=== PATIENT | female | born 1940 | race Caucasian/White ===

== ENCOUNTER 2019-12-14 13:52 | Inpatient (IN) ==
[2019-12-14] MEDS ORDERED: ICU PROTOCOL FOR HYPERGLYCEMIA PRN (17:14)
[2019-12-14] MEDS ORDERED: PROPOFOL BOLUS FROM BAG IV PRN (17:17)
[2019-12-14] MEDS ORDERED: STAT IV Infusion **Titration per Protocol STA ×2 (17:17→20:44)
[2019-12-14] MEDS ORDERED: PROPOFOL IV EMULSION 10 MG/ML 100 ML VIAL IV ONE (17:24)
[2019-12-14] MEDS ORDERED: PATIENT'S HEIGHT AND/OR WEIGHT NEEDED SCH (17:45)
--- NOTE | 2019-12-14 17:56 | Critical Care Consultation ---
Date of Consultation December 14, 2019 Assessment & Plan (1) Pneumonia due to 2019 novel coronavirus: Assessment and Plan: -Acute hypoxemic respiratory failure secondary to Covid pneumonitis -Hypertensive urgency -History of CAD -History of CVA -Hyperglycemia with a history of diabetes mellitus -Acute hyponatremia Neurologic: We will start fentanyl and propofol for sedation. Patient appears to be mentating and following commands. She has a history of CVA. Will obtain records from the outside hospital. No head imaging required at this time. Pulmonary: Ventilator: 28/400/100/15 Head of the bed elevated to 30 degrees Obtain an ABG in 1 hour. If she continues to have refractory hypoxemia, we will have to consider proning and starting paralytic therapy. Will obtain chest x- ray. It appears that she may have had a CT chest at the outside hospital. Will obtain imaging from the outside facility if available. She may need an echocardiogram with a bubble study to rule out shunt physiology. Cardiovascular: She is currently having hypertensive urgency. This should be better controlled with the addition of fentanyl and propofol. We will obtain an echo as noted above if refractory hypoxemia is present. She appears fairly euvolemic at this time. Obtain EKG and trend troponins. Gastrointestinal: Bowel regimen Stress ulcer prophylaxis: We will start famotidine 20 mg twice daily. Renal: We will obtain BMP and treat accordingly. Monitor sodium. Obtain urine sodium and serum osmolality. Infectious disease: Per the outside facility, she had a UA that was consistent with a E. coli. She apparently has penicillin allergy. She was on aztreonam. We will continue treating him for the time being. Obtain MRSA screen and procalcitonin. Hematologic: CBC pending Endocrine: History of diabetes and currently hyperglycemic. We will likely start insulin drip. F/E/N: We will place an NG tube. If unable to extubate in the next 24 hours, will start her on tube feeds. Lines and tubes: [address] and a Ritter catheter VTE prophylaxis: SCDs and heparin 3 times daily CODE STATUS: Full code at present Family at bedside: Not available due to the COVID-19 pandemic Disposition: Patient is critically ill I have personally spent 63 minutes of critical care time in the direct management of this patient. This is a life/limb threatening event. This includes time spent evaluating patient, direct bedside care, chart review, placing orders, interpretation of diagnostic studies, discussion with consultants, patient, and family members, as well as other required patient management activities. This time is exclusive of all separately billable procedures, and teaching time and separate from and in addition to any other critical care service time. Thank you for allowing us to participate in the care of this patient. (2) Acute hypoxemic respiratory failure: (3) Coronary artery disease: (4) Endotracheally intubated: (5) Hypertensive urgency: History of Present Illness Reason for Consultation: Viral pneumonia secondary to Covid Requesting Physician: Hospitalist service Attending Physician: Beto Kay MD History of Present Illness 79-year-old female with a past medical history of coronary artery dise ase, previous CVA with right-sided lower extremity deficits, diabetes mellitus type 2, hyponatremia who presented to [facility] in [place] roughly 4 to 5 days ago. I received a phone call from the hospitalist to [facility] who indicated that the patient was starting to go into worsening respiratory failure requiring 15 L of oxygen via Ventimask and 55% FiO2. He indicated to me that her ABG was 7.5/24/55 on those settings. Due to worsening hypoxemic respiratory failure, they elected to emergently intubate the patient and requested transfer to [facility] for further management. She apparently had imaging at the outside facility that demonstrated groundglass opacities consistent with possible Covid pneumonitis. She was started on remdesivir per the hospitalist service. She received Lasix. Her last sodium was 125. She is also being treated for an E. coli urinary tract infection infection with aztreonam. Unable to obtain a history from the patient she is currently intubated. No family is available at bedside. Unfortunately the charting that we received thus far from the outside facility is very sparse with no history or progress notes available as of yet. She does appear to be mentating well and is following simple commands. Patient History Medical History (Updated 12/14/19 @ 18:01 by Peewee Gracia MD) Acute hypoxemic respiratory failure Coronary artery disease Endotracheally intubated Hypertensive urgency Pneumonia due to 2019 novel coronavirus Review of Systems Review of Systems: Unobtainable due to endotracheal tube Physical Exam Constitutional: Patient is currently intubated. She appears to be in mild distress. Eyes: PERRL, conjunctivae normal, anicteric sclerae ENMT: external ear and nose normal, oropharynx normal Neck: + thick neck Respiratory: Coarse breath sounds bilaterally with some mild expiratory wheezing Cardiovascular: RRR, no murmur, no edema Gastrointestinal (Abdomen): normal bowel sounds, soft, nontender, no hepatosplenomegaly Musculoskeletal: no cyanosis or clubbing, extremities motor strength 5/5 Skin: no rashes, warm and dry Neurologic: Weakness noted in the right lower extremity. She is gripping my hands bilaterally with her hands. Able to move upper extremities without any issues. Moving her head. Following commands. Psychiatric: Unable to assess due to her intubation status. She does appear mildly anxious. Results & Data Results & Data ([facility]) Vital Signs (Past 12 Hours) Vital Signs Pulse Resp Pulse Ox 12/14/19 17:34 79 35 H 94 Vital signs reviewed Coding Level of Care Code Critical Care 1st 30-74 mins Diagnoses Pneumonia due to 2019 novel coronavirus U07.1; J12.89 Acute hypoxemic respiratory failure J96.01 Coronary artery disease I25.10 Endotracheally intubated Z97.8 Hypertensive urgency I16.0 Time Spent (min) 63
[2019-12-14] MEDS ORDERED: GLUCOSE 40% GEL 15 GM TUBE PO PRN (18:08)
[2019-12-14] MEDS ORDERED: DEXTROSE 50% 50 ML SYRINGE IV PRN (18:08)
[2019-12-14] MEDS ORDERED: GLUCOSE 10 TABS/TUBE PO PRN (18:08)
[2019-12-14] MEDS ORDERED: CARBOHYDRATES FOR HYPOGLYCEMIA PO PRN (18:08)
[2019-12-14] MEDS ORDERED: PHARMACY GLYCEMIC MGMT CONSULT STA (18:08)
[2019-12-14] MEDS ORDERED: GLUCAGON FOR INJ 1 MG VIAL SQ PRN (18:08)
[2019-12-14] MEDS ORDERED: PHARMACY GLYCEMIC MGMT CONSULT PRN (18:18)
--- NOTE | 2019-12-14 18:34 | History & Physical Report ---
Date of Service December 14, 2019 Assessment & Plan (1) Acute hypoxemic respiratory failure: Secondary to Covid pneumonia. Patient be continued on remdesivir dexamethasone and she will be given convalescent plasma. She is currently ventilated with pulmonary oversight and sedated with propofol. Hopes to proceed to rapid weaning and eventually supporting hypoxic respiratory failure with high flow oxygen (2) Coronary artery disease: Reportedly history of coronary artery disease with stenting. Patient typically was on dual antiplatelets also because of history of cerebrovascular disease. She also typically took isosorbide mononitrate and metoprolol. We will utilize intravenous metoprolol for blood pressure control and we can institute nitrates if needed. As the patient is intubated we will have an OG tube placed and institute aspirin and Plavix therapy via OG tube. (3) Diabetes: Patient's blood glucose is elevated on presentation we will attempt to use Lantus at 20 twice daily which is about 0.5/kg and insulin sliding scale with diabetic pharmacy oversight attempting to minimize in insulin drip usage to minimize nursing exposure to Covid (4) E. coli UTI: This is as per [facility] chart we will continue aztreonam completing a 7- day course at this time (5) DVT prophylaxis: Lovenox abuse for DVT prevention Admission and Anticipated Discharge Date Admission Date: December 14, 2019 History of Present Illness Primary Care Provider: Sherice Linton MD 79-year-old female transferred from [facility] with acute respiratory failure secondary to Covid pneumonia with intubation prior to transport Reportedly the patient was admitted to [facility] on [address] scan findings consistent with bilateral groundglass opacities right greater than left. At the time that they were suspicious that this could be a Covid infection and an testing was sent but did not return until the at which time an infectious disease consultation was undertaken and remdesivir was initiated as well as Decadron therapy. However the patient continued to have progressive respiratory requirements and call to our intensive care team was made patient was accepted in transfer however the team at [facility] felt more comfortable with the patient being intubated prior to transfer. Patient arrives intubated she is sedated with propofol will be continued on dexamethasone remdesivir will be given convalescent plasma prior. I did obtain phone consent from Doreen Cisneros her daughter. GC bladder patient also did initially received levofloxacin on presentation and then aztreonam for what was felt to be an E. coli UTI as she does have a history of penicillin allergy. Patient does arrive here with an elevated blood glucose likely from the Decadron and her history of type 2 diabetes we will attempt to use basal bolus insulin therapy at this time to avoid insulin drip to minimize nursing exposure to the patient with Covid infection. Reportedly per [facility] notes the patient did receive a dental extraction a few days prior to her initial presentation to [facility] details of this are unknown or if the dentist is aware of the patient's Covid status Past Med/Surg History Medical History (Updated 12/14/19 @ 18:33 by Beto Kay MD) Acute hypoxemic respiratory failure Coronary artery disease Endotracheally intubated Hypertensive urgency Pneumonia due to 2019 novel coronavirus Review of Systems Review of Systems: Unobtainable due to endotracheal tube Physical Exam Physical Exam: The patient appeared with good perfusion she is resting comfortably on propofol she is endotracheally intubated Vital signs as documented. Head exam is normocephalic atraumatic no scleral icterus Neck is without JVD, trachea is midline Lungs are coarse bilaterally Cardiac exam, Rhythm is regular.. No murmurs, rubs or gallops. Abdominal exam reveals normal bowel sounds, no masses Extremities are nonedematous and both pedal pulses are present Neurologic exam sedated on the ventilator Skin is without bruises or rashes Results & Data Results & Data ([facility]) Vital Signs (Past 12 Hours) Vital Signs Pulse Resp Pulse Ox 12/14/19 17:34 79 35 H 94 PG Care Time/CCT Total # of Minutes Spent Total Time Spent with Patient: Total time spent is greater than 50% in coordination of care (as documented) at patient's floor/unit and/or counseling patient: Coding Level of Care Code 27295 Initial Inpt Care Lvl 3 Diagnoses Acute hypoxemic respiratory failure J96.01 Coronary artery disease I25.10 Diabetes E11.9 E. coli UTI N39.0; B96.20 DVT prophylaxis Z29.9
[2019-12-14] MEDS ORDERED: METOPROLOL TARTRATE 1 MG/ML VIAL IV PRN (18:38)
[2019-12-14] MEDS: propofoL 1,000 MG/100 ML VIAL IV SCH (18:52)
[2019-12-14 18:59] LABS: Basophils # (auto) 0.01 K/uL (0-0.2); Basophils % (auto) 0.1 %; Hematocrit (blood only) 30.3 % (37-47); Hemoglobin 10.5 g/dL (12.0-16.0); Immature Granulocytes # (auto) 0.05 K/uL (0.00-0.02); Immature Granulocytes % (auto) 0.5 %; Lymphocytes # (auto) 0.51 K/uL (1.2-3.4); Lymphocytes % (auto) 4.8 %; Mean Corpuscular Hemoglobin 28.7 pg (25-34); Mean Corpuscular Hgb Conc 34.7 g/dL (32-36); Mean Corpuscular Volume 82.8 fL (80-100); Mean Platelet Volume 10.4 fL (7.4-10.4); Monocytes # (auto) 0.32 K/uL (0.11-0.59); Neutrophils # (auto) 9.76 K/uL (1.4-6.5); Neutrophils % (auto) 91.6 %; Platelet Count 269 K/uL (130-400); RDW Coefficient of Variation 12.9 % (11.5-14.5); RDW Standard Deviation 39.1 fL (36.4-46.3); Red Blood Count 3.66 M/uL (4.2-5.4); White Blood Count 10.65 K/uL (4.8-10.8)
[2019-12-14] MEDS: fentaNYL DRIP 1,250 MCG/250 ML BAG IV SCH (19:09)
[2019-12-14 19:21] LABS: D Dimer 1600 ug/L FEU (0-500)
[2019-12-14 19:37] LABS: Albumin Globulin Ratio 0.5 (0.9-2); Albumin Level 2.6 gm/dl (3.4-5.0); BUN Creatinine Ratio 18.9 (10-20); Bilirubin,Total 0.4 mg/dl (0.2-1); C Reactive Protein 17.3 mg/dl (0-0.29); Calcium 9.1 mg/dl (8.5-10.1); Creatinine Clr Calc Pharmacy 30.9 ml/min; Est GFR (African American) 38.4; Est GFR (Non-African American) 33.1; Globulin 5.1 gm/dl (2.5-4.0); Magnesium 1.7 mg/dl (1.8-2.4); Phosphorus 4.3 mg/dl (2.5-4.9); Potassium 4.4 mmol/L (3.5-5.1); Total Protein 7.7 gm/dl (6.4-8.2); Troponin I 0.041 ng/ml (0-0.045)
[2019-12-14 19:57] LABS: Beta-Hydroxybutyrate 2.15 mg/dl (0.2-2.81)
[2019-12-14] MEDS ORDERED: INSULIN GLARGINE SOLOSTAR 100 UNITS/ML 3 ML PEN SC SCH (20:00)
--- NOTE | 2019-12-14 20:45 | XRay Report ---
KUB HISTORY: ogt placement COMPARISON: None. FINDINGS: Nasogastric tube terminates in the body of the stomach. Mild elevation the right hemidiaphr agm is noted. A few mildly dilated gas-filled loops of large and small bowel within the abdomen. This may represent an ileus. No renal calculi. No ureteral calculi. No pneumoperitoneum or pneumatosis. IMPRESSION: Nasogastric tube terminates in the stomach. ACT 112: Negative or not required by law. Electronically signed by: Reji Jay M.D. 12/14/2019 8:44 PM
[2019-12-14] MEDS: AZTREONAM 1,000 MG in DEXTROSE 5% 100 ML IV SCH (20:49)
[2019-12-14] MEDS ORDERED: INSULIN ASPART 100 UNITS/ML 3 ML PEN SC SCH (21:00)
[2019-12-14] MEDS ORDERED: HEPARIN SOD 5,000 UNIT/0.5 ML VIAL SQ SCH (22:00)
--- NOTE | 2019-12-14 22:23 | Procedure Note ---
Procedure Note Date of Service Procedure: Internal Jugular Central Line Placement Attending: Dr. Gracia APC: Juancarlos Browning PA-C Indication: Central Drug Administration, Poor Venous Access, Multiple Lab Draws Necessary, etc. Anesthesia: Lidocaine 1% Emergent consent implied in the setting of worsening clinical status requiring vasopressor support and the patient with poor peripheral access. A time-out was completed verifying correct patient, procedure, site, positioning, and implants(s) or special equipment if applicable. Patients RIGHT Neck was cleansed and draped in the typical sterile fashion using Chloraprep. The Internal Jugular Vein and Carotid Artery were identified using ultrasound. The superficial tissue was anesthetized using 3.0 mL of 1% lidocaine without epinephrine under direct visualization with the ultrasound. After adequate anesthetization was achieved, the Internal Jugular vein was cannulated under direct ultrasound guidance using an introducer needle on a syringe. Good venous blood return was maintained prior to removal of syringe from introducer needle. Using Seldinger Technique, a guide wire was advanced through the introducer needle without resistance. The introducer needle was removed and ultrasound images were obtained of the guide wire within the Internal Jugular Vein and saved to the patients medical record. A small incision was made in penetrating fashion at the guide wire insertion site utilizing an 11 blade scalpel. The dilator was advanced to the vessel without resistance. The dilator was exchanged for the triple lumen catheter which was advanced into the vessel without resistance. The guide wire was removed intact from the catheter without issue. Claves were placed on each catheter tip with confirmation of good blood flow from each lumen. Each port was easily flushed with sterile saline. The catheter was placed at 15 cm and sut[address] in place. BioPatch was applied to the catheter and a sterile Tegaderm dressing was applied over the catheter with careful attention to sterility. Patient tolerated procedure well. No immediate complications were met. Post procedure x-ray was completed, placement was appropriate and no pneumothorax was noted. Images unable to be saved secondary to machine malfunction. Procedural Ultrasound Guidance: Procedure Date: 12/14/2019 Indication: Pressors, Poor Access, Multiple medications Attending: Dr. Gracia APC: Juancarlos Browning PA-C Artery AND Vein visualized: YES Compressible Vein: YES Guidewire or Short Catheter seen in vein prior to dilation: YES Line confirmed in Vein with ultrasound: YES Images unable to be obtained secondary to equiment malfunction. Coding CPT Codes Tubes, Drains, and Vasc Access - Tubes, Drains, and Vasc Access: [id number] Insertion Of Non-tunneled Catheter Age 5 Yrs> ([id number]) Tubes, Drains, and Vasc Access - Tubes, Drains, and Vasc Access: [id number] Ultrasound Guidance For Vascular ([id number]) [facility] [place] Procedure Codes (Charges) Tubes, Drains, and Vasc Access Procedure 1: Tubes, Drains, and Vasc Access: [id number] Insertion Of Non-tunneled Catheter Age 5 Yrs> Procedure 2: Tubes, Drains, and Vasc Access: [id number] Ultrasound Guidance For Vascular
[2019-12-14] MEDS: METOPROLOL TARTRATE 25 MG TAB PO SCH (22:42)
[2019-12-14] MEDS ORDERED: INSULIN HUMAN REGULAR BOLUS IV ONE (22:45)
[2019-12-14] MEDS: NOREPINEPHRINE BIT INJ 8 MG in DEXTROSE 5% 500 ML IV SCH (22:49)
[2019-12-14 23:29] LABS: BUN Creatinine Ratio 22.6 (10-20); Calcium 8.6 mg/dl (8.5-10.1); Creatinine Clr Calc Pharmacy 29.9 ml/min; Est GFR (African American) 36.9; Est GFR (Non-African American) 31.8; Magnesium 1.7 mg/dl (1.8-2.4); Phosphorus 3.8 mg/dl (2.5-4.9); Potassium 4.3 mmol/L (3.5-5.1)
[2019-12-14 23:52] LABS: Beta-Hydroxybutyrate 2.54 mg/dl (0.2-2.81)
[2019-12-15 00:02] LABS: Appearance Urine Clear (Clear); Bacteria Urine Automated Negative (Negative); Bilirubin Urine Negative (Negative); Blood Urine Trace (Negative); Color Urine Yellow; Epithelial Cell Urine Auto >30 /lpf (0-5); Glucose Urine UA 2+ (Negative); Ketones Urine Negative (Negative); Leukocyte Esterase Urine Trace (Negative); Nitrite Urine Negative (Negative); Protein Urine 1+ (Negative); RBC Urine Automated 0-4 /hpf (0-4); Specific Gravity Urine 1.014 (1.000-1.030); Urobilinogen Urine Negative (Negative)
[2019-12-15] MEDS: INSULIN REGULAR 250 UNITS in SODIUM CHLORIDE 0.9% 247.5 ML IV SCH (00:37)
[2019-12-15] MEDS: propofoL 1,000 MG/100 ML VIAL IV SCH ×2 (02:12→11:29)
[2019-12-15 03:12] LABS: BUN Creatinine Ratio 25.6 (10-20); Creatinine Clr Calc Pharmacy 31.8 ml/min; Est GFR (African American) 39.7; Est GFR (Non-African American) 34.3; Magnesium 1.8 mg/dl (1.8-2.4); Phosphorus 3.9 mg/dl (2.5-4.9); Potassium 3.7 mmol/L (3.5-5.1)
[2019-12-15 03:14] LABS: Albumin Level 2.4 gm/dl (3.4-5.0); Bilirubin Direct 0.2 mg/dl (0-0.2); Bilirubin,Total 0.5 mg/dl (0.2-1); Total Protein 7.4 gm/dl (6.4-8.2)
[2019-12-15 03:23] LABS: Beta-Hydroxybutyrate 5.74 mg/dl (0.2-2.81)
[2019-12-15] MEDS: AZTREONAM 1,000 MG in DEXTROSE 5% 100 ML IV SCH ×3 (04:26→20:00)
[2019-12-15 07:14] LABS: Basophils # (auto) 0.01 K/uL (0-0.2); Basophils % (auto) 0.1 %; Hematocrit (blood only) 31.9 % (37-47); Hemoglobin 11.4 g/dL (12.0-16.0); Immature Granulocytes # (auto) 0.06 K/uL (0.00-0.02); Immature Granulocytes % (auto) 0.6 %; Lymphocytes # (auto) 0.81 K/uL (1.2-3.4); Lymphocytes % (auto) 8.4 %; Mean Corpuscular Hemoglobin 28.6 pg (25-34); Mean Corpuscular Hgb Conc 35.7 g/dL (32-36); Mean Corpuscular Volume 79.9 fL (80-100); Monocytes # (auto) 0.66 K/uL (0.11-0.59); Monocytes % (auto) 6.9 %; Neutrophils # (auto) 8.08 K/uL (1.4-6.5); Platelet Count 300 K/uL (130-400); RDW Coefficient of Variation 12.6 % (11.5-14.5); Red Blood Count 3.99 M/uL (4.2-5.4); White Blood Count 9.62 K/uL (4.8-10.8)
--- NOTE | 2019-12-15 07:37 | XRay Report ---
XR chest 1V portable HISTORY: Status post right jugular central venous catheter placement. COMPARISON: None. FINDINGS: Endotracheal tube terminates 3 cm from the kiran. Nasogastric tube terminates at the body of the stomach. There is a right jugular central venous catheter with the tip terminating in the expe cted location of the proximal SVC. Diffuse interstitial thickening with perihilar airspace opacities, right greater than left. Trace left pleural effusion. No pneumothorax. IMPRESSION: 1. The right jugular central venous catheter tip terminates in the expected location of the proximal SVC. 2. The remaining lines and tubes are in satisfactory position. 3. Perihilar airspace opacities, right greater than left and a trace left pleural effusion. This coul d be due to a pneumonia or pulmonary edema. ACT 112: Negative or not required by law. Electronically signed by: Reji Jay M.D. 12/15/2019 7:36 AM
[2019-12-15 07:41] LABS: BUN Creatinine Ratio 27.3 (10-20); Calcium 9.4 mg/dl (8.5-10.1); Creatinine Clr Calc Pharmacy 34.4 ml/min; Est GFR (African American) 43.7; Est GFR (Non-African American) 37.7; Phosphorus 3.7 mg/dl (2.5-4.9); Potassium 3.6 mmol/L (3.5-5.1)
[2019-12-15 07:53] LABS: Estimated Average Glucose 194 mg/dl; Hemoglobin A1C 8.4 % (4.5-5.6)
[2019-12-15] MEDS: DEXAMETHASONE SOD PHOSPHATE 6 MG in SYRINGE 0 ML IV SCH (08:08)
[2019-12-15] MEDS: ENOXAPARIN INJ 40 MG/0.4 ML SYR SQ SCH (08:08)
[2019-12-15] MEDS: INSULIN ASPART 100 UNITS/ML 3 ML PEN SC SCH ×4 (08:39→20:50)
[2019-12-15] MEDS: METOPROLOL TARTRATE 25 MG TAB PO SCH (08:40)
[2019-12-15] MEDS ORDERED: REMDESIVIR 200 mg: Day 1 IV ONE (09:00)
--- NOTE | 2019-12-15 09:23 | Critical Care Progress Note ---
Date of Service December 15, 2019 Assessment & Plan (1) Pneumonia due to 2019 novel coronavirus: Patient was discussed on multidisciplinary rounds. Assessment and Plan: -Acute hypoxemic respiratory failure secondary to COVID pneumonitis -Hypertensive urgency -Sedation related hypotension -History of CAD -History of CVA -Hyperglycemia with a history of diabetes mellitus -Acute hyponatremia -Complicated urinary tract infection Neurologic: Continue propofol and fentanyl for sedation. She has a history of CVA. Continue aspirin. Pulmonary: Ventilator: She has evidence of respiratory alkalosis. Wean down respiratory rate from 25-18. We were able to go down to an FiO2 of 40% and a PEEP of 5. Oxygenation appears adequate. Head of the bed elevated to 30 degrees Continue broad-spectrum antibiotics for pneumonia. Continue therapies for Covid pneumonitis Cardiovascular: Her blood pressure dropped overnight due to propofol and fentanyl. She also has some mild bradycardia. We are weaning down the propofol. Obtain echocardiogram. Troponins have been negative thus far. Gastrointestinal: Bowel regimen Stress ulcer prophylaxis: Continue famotidine twice daily. We will start tube feeds today. Renal: She continues to have hyponatremia. Possible SIADH related to Covid pneumonia. Urine sodium is 74. Infectious disease: Per the outside facility, she had a UA that was consistent with a E. coli. She apparently has penicillin allergy. She was on aztreonam. Continue treatment for 7 days. MRSA screen was negative. Procalcitonin negative. Repeat procalcitonin is negative. Blood cultures pending. Continue remdesivir, Decadron. She received convalescent plasma last night. Hematologic: Patient has evidence of mild anemia. Lymphopenia present on peripheral smear. Ferritin was not substantially elevated. D-dimer is elevated, but nonspecific. Endocrine: Continue insulin drip. Management per ICU pharmacist. F/E/N: We will start tube feeds. Lines and tubes: Peripheral IVs and central line in place. Ritter in place. VTE prophylaxis: Continue Lovenox 40 mg daily. CODE STATUS: Full code at present Family at bedside: Not available due to the COVID-19 pandemic Disposition: Patient is critically ill I have personally spent 53 minutes of critical care time in the direct management of this patient. This is a life/limb threatening event. This includes time spent evaluating patient, direct bedside care, chart review, placing orders, interpretation of diagnostic studies, discussion with consultants, patient, and family members, as well as other required patient management activities. This time is exclusive of all separately billable procedures, and teaching time and separate from and in addition to any other critical care service time. Thank you for allowing us to participate in the care of this patient. (2) Acute hypoxemic respiratory failure: (3) Coronary artery disease: (4) Endotracheally intubated: (5) Hypertensive urgency: (6) Complicated UTI (urinary tract infection): Admission and Anticipated Discharge Date Admission Date: December 14, 2019 Subjective Patient had some transient episodes of hypotension overnight. She is currently on low-dose Levophed currently. We are weaning down her propofol from 25 mcg to 10 mcg. She is currently on 50 mcg of fentanyl. She is not following any commands due to sedation. Right internal jugular line was placed overnight due to hypotension. Arterial line was attempted but unable to be placed. Review of Systems Review of Systems: Unobtainable due to endotracheal tube and Unobtainable due to reduced consciousness Physical Exam Constitutional: Patient is currently intubated and sedated. Eyes: PERRL, conjunctivae normal, anicteric sclerae ENMT: external ear and nose normal, oropharynx normal Neck: + thick neck Respiratory: Coarse breath sounds bilaterally on the ventilator Cardiovascular: RRR, no murmur, no edema Gastrointestinal (Abdomen): normal bowel sounds, soft, nontender, no hepatosplenomegaly Musculoskeletal: no cyanosis or clubbing, extremities motor strength 5/5 Skin: no rashes, warm and dry Neurologic: No focal deficits noted. Exam limited due to sedation. Psychiatric: Unable to assess due to her intubation status. Results & Data Results & Data ([facility]) Vital Signs (Past 12 Hours) Vital Signs Temp Pulse Pulse Resp BP BP Pulse Ox 12/15/19 08:10 46 L 26 H 96 12/15/19 04:30 46 L 96 12/15/19 04:28 46 L 166/65 H 96 12/15/19 04:18 46 L 164/63 H 96 12/15/19 04:08 47 L 164/64 H 96 12/15/19 04:00 47 L 96 12/15/19 03:58 48 L 115/56 L 95 12/15/19 03:52 97.0 F L 48 L 153/56 H 95 12/15/19 03:48 48 L 153/56 H 94 12/15/19 03:38 48 L 146/59 H 94 12/15/19 03:32 48 L 47 L 29 H 145/57 H 145/57 H 93 12/15/19 03:30 48 L 93 12/15/19 03:28 48 L 143/56 H 93 12/15/19 03:18 52 L 153/64 H 94 12/15/19 03:08 48 L 148/51 H 94 12/15/19 03:00 50 L 94 12/15/19 02:58 49 L 154/65 H 94 12/15/19 02:56 49 L 28 H 98 12/15/19 02:48 49 L 145/56 H 98 12/15/19 02:38 49 L 147/58 H 98 12/15/19 02:30 47 L 97 12/15/19 02:28 49 L 142/55 H 97 12/15/19 02:18 56 L 152/61 H 95 12/15/19 02:08 49 L 155/63 H 98 12/15/19 02:00 47 L 98 12/15/19 01:58 47 L 147/61 H 98 12/15/19 01:48 49 L 142/63 H 98 12/15/19 01:38 48 L 143/60 H 98 12/15/19 01:30 48 L 97 12/15/19 01:28 47 L 139/63 98 12/15/19 01:18 50 L 137/59 L 97 12/15/19 01:09 49 L 97 12/15/19 01:08 49 L 136/63 97 12/15/19 01:00 50 L 97 12/15/19 00:58 49 L 144/61 H 97 12/15/19 00:48 49 L 138/62 98 12/15/19 00:38 48 L 147/58 H 98 12/15/19 00:30 49 L 98 12/15/19 00:28 49 L 168/61 H 98 12/15/19 00:18 48 L 168/65 H 98 12/15/19 00:08 49 L 171/60 H 98 12/15/19 00:00 48 L 97 12/14/19 23:58 49 L 171/60 H 97 12/14/19 23:48 50 L 166/62 H 97 12/14/19 23:45 48 L 28 H 100 12/14/19 23:43 49 L 49 L 29 H 176/71 H 176/71 H 97 12/14/19 23:39 51 L 146/51 H 97 12/14/19 23:30 49 L 100 12/14/19 23:17 50 L 112/54 L 100 12/14/19 23:07 50 L 110/53 L 100 12/14/19 23:00 51 L 100 12/14/19 22:57 51 L 108/52 L 99 12/14/19 22:50 52 L 99 12/14/19 22:47 52 L 106/56 L 99 12/14/19 22:40 52 L 99 12/14/19 22:37 52 L 111/54 L 99 12/14/19 22:30 53 L 99 12/14/19 22:27 53 L 113/59 L 98 12/14/19 22:20 53 L 97 12/14/19 22:17 54 L 121/57 L 96 12/14/19 22:10 55 L 97 12/14/19 22:07 57 L 187/66 H 97 12/14/19 22:00 98.4 F 60 99 12/14/19 21:57 56 L 185/75 H 96 12/14/19 21:50 55 L 94 12/14/19 21:40 52 L 96 12/14/19 21:38 54 L 168/58 H 96 12/14/19 21:30 52 L 95 12/14/19 21:20 52 L 95 I reviewed vital signs, labs and imaging Coding Level of Care Code Critical Care 1st 30-74 mins Diagnoses Pneumonia due to 2019 novel coronavirus U07.1; J12.89 Acute hypoxemic respiratory failure J96.01 Coronary artery disease I25.10 Endotracheally intubated Z97.8 Hypertensive urgency I16.0 Complicated UTI (urinary tract infection) N39.0 Time Spent (min) 53
[2019-12-15 09:43] LABS: iSTAT Arterial Blood Gas pCO2 29 mmHg (35-46); iSTAT Arterial Blood Gas pH 7.43 (7.35-7.45); iSTAT Arterial Blood Gas pO2 121 mmHg (80-95); iSTAT Carbon Dioxide 20 mmol/L (24-31)
[2019-12-15 09:44] LABS: iSTAT Arterial Blood Gas HCO3 19 meg/L (19-24)
[2019-12-15 09:44] LABS: iSTAT Sodium 123 mmol/L (135-144)
[2019-12-15 09:45] LABS: iSTAT Art Bld Gas pCO2 Correct 26 mmHg (35-46); iSTAT Art Bld Gas pH Corrected 7.504 (7.35-7.45); iSTAT Arterial Blood Gas HCO3 20 meg/L (19-24); iSTAT Arterial Blood Gas pCO2 26 mmHg (35-46); iSTAT Arterial Blood Gas pO2 112 mmHg (80-95); iSTAT Arterial Blood Gas pO2 C 112; iSTAT Carbon Dioxide 21 mmol/L (24-31); iSTAT Hematocrit 31 % (37-47); iSTAT Hemoglobin 10.5 g/dl (12.0-16.0); iSTAT Potassium 3.5 mmol/L (3.3-5.0)
[2019-12-15 09:46] LABS: iSTAT Allen Test Acceptable; iSTAT FiO2 60 %; iSTAT Sample Type Arterial; iSTAT Site L Brachial
[2019-12-15 09:47] LABS: iSTAT SpO2 100
[2019-12-15] MEDS: ASPIRIN 81 MG CHEW NG SCH (10:22)
[2019-12-15] MEDS: CLOPIDOGREL BISULFATE 75 MG TAB PEG SCH (10:22)
[2019-12-15] MEDS: NSS 30mL Flush, Days 1-5 IV SCH (10:23)
[2019-12-15 10:43] LABS: BUN Creatinine Ratio 29.4 (10-20); Creatinine Clr Calc Pharmacy 37.5 ml/min; Est GFR (African American) 48.6; Est GFR (Non-African American) 41.9; Magnesium 2.1 mg/dl (1.8-2.4); Phosphorus 3.9 mg/dl (2.5-4.9); Potassium 3.5 mmol/L (3.5-5.1)
[2019-12-15] MEDS: INSULIN GLARGINE SOLOSTAR 100 UNITS/ML 3 ML PEN SC SCH ×2 (11:00→21:24)
[2019-12-15] MEDS: FAMOTIDINE 20 MG in SYRINGE 3 ML IV SCH (11:28)
[2019-12-15] MEDS ORDERED: PEPTAMEN 1.5 CAL 1,000 ML BAG NG SCH (12:30)
--- NOTE | 2019-12-15 12:43 | XCELERA ---
[id number]
--- NOTE | 2019-12-15 13:20 | Hospitalist Progress Note ---
Date of Service December 15, 2019 Assessment & Plan (1) Pneumonia due to 2019 novel coronavirus: Admitted to [facility] in [place] on 12/11/2019 per records. Acute hypoxic respiratory failure / respiratory status worsened while there, and she was intubated on 12/14/19 prior to Tx to [facility] ICU. Remains mechanically ventilated. Spoke with Dr Gracia - plan is for weaning of sedation & pressors today. If she meets weaning parameters by tomorrow attempts at extubation will occur. She is at least day #2 of IV decadron here - uncertain if she received steroids at outside hospital; will inquire with [facility]. s/p convalescent plasma early this am, 12/15/19. Now that renal function has improved with CrCL >30 will start 5-day course of IV remdesivir. Discussed this with pharmacy and ICU attending. (2) Acute hypoxemic respiratory failure: 2nd to COVID-19 pneumonia. See above. Day #2 of ventilator days. (3) Severe sepsis: 2nd to COVID-19 pneumonia and e.coli UTI. Cont supportive care for COVID-19. Cont aztreonam for e.coli UTI. Attempt to obtain urine culture from [facility]. Suspect hypothermia is due to the above infectious sources. (4) Coronary artery disease: Reported history of coronary artery disease with stenting. Cont asa. Cont plavix. Cont metoprolol if BP will allow. (5) Diabetes: Cont insulin drip protocol as managed by pharmacy glycemic team. Appreciate their assistance. (6) E. coli UTI: Continue aztreonam. Will obtain culture from [facility]. This is at least day #4 of abx. Plan 7 days. (7) History of CVA (cerebrovascular accident): Noted. Cont asa/plavix for secondary prevention. (8) Acute tubular necrosis: 2nd to sepsis/COVID-19. Improving. BMP am. (9) MICHAEL (acute kidney injury): 2nd ATN. Improving. BMP am. (10) Hyponatremia: ICU attending feels there may be component of SIADH. Radiographically does not appear to have CHF. Na level is improving -- was 120, now 125. Apparently was diuresed at [facility] - Na may have worsened w/ such. Check TSH in am to be complete. Cortisol level would be inaccurate due to steroid use. (11) Hypothermia: 2nd sepsis, sedation, etc. Defer management to ICU team. (12) DVT prophylaxis: Lovenox SC As renal function improves consider increasing dose given high association of VTE w/ COVID-19 updated daughter, Doreen, at [phone]. daughter reports that patient has a "ultrasound applications specialist" with whom she lives. recommended that pt's ultrasound applications specialist be tested for COVID-19 gia. Doreen also mentioned she has 2 brothers - recommended they be tested as well. will continue to follow. Admission and Anticipated Discharge Date Admission Date: December 14, 2019 Subjective events of last 24 hours noted spoke with pt's bedside nurse as well as the ICU attending hope is for weaning of pressors and sedation along with vent support with attempts at extubation tomorrow low temps noted episodes of bradycardia Review of Systems Review of Systems: Unobtainable due to endotracheal tube Physical Exam Physical Exam: In light of intubated status and attempts at preservation of valuable PPE a bedside examination was deferred by this author. Vitals reviewed. Please reference the physical exam as performed by ICU attending Dr Gracia. Noted - lungs with course BS b/l as documented by Dr Gracia. Results & Data Results & Data ([facility]) Vital Signs (Past 12 Hours) Vital Signs Temp Pulse Pulse Resp BP BP Pulse Ox 12/15/19 11:42 44 L 18 98 12/15/19 08:10 46 L 26 H 96 12/15/19 04:30 46 L 96 12/15/19 04:28 46 L 166/65 H 96 12/15/19 04:18 46 L 164/63 H 96 12/15/19 04:08 47 L 164/64 H 96 12/15/19 04:00 47 L 96 12/15/19 03:58 48 L 115/56 L 95 12/15/19 03:52 36.1 C L 48 L 153/56 H 95 12/15/19 03:48 48 L 153/56 H 94 12/15/19 03:38 48 L 146/59 H 94 12/15/19 03:32 48 L 47 L 29 H 145/57 H 145/57 H 93 12/15/19 03:30 48 L 93 12/15/19 03:28 48 L 143/56 H 93 12/15/19 03:18 52 L 153/64 H 94 12/15/19 03:08 48 L 148/51 H 94 12/15/19 03:00 50 L 94 12/15/19 02:58 49 L 154/65 H 94 12/15/19 02:56 49 L 28 H 98 12/15/19 02:48 49 L 145/56 H 98 12/15/19 02:38 49 L 147/58 H 98 12/15/19 02:30 47 L 97 12/15/19 02:28 49 L 142/55 H 97 12/15/19 02:18 56 L 152/61 H 95 12/15/19 02:08 49 L 155/63 H 98 12/15/19 02:00 47 L 98 12/15/19 01:58 47 L 147/61 H 98 12/15/19 01:48 49 L 142/63 H 98 12/15/19 01:38 48 L 143/60 H 98 12/15/19 01:30 48 L 97 12/15/19 01:28 47 L 139/63 98 Laboratory Results Laboratory Results - last 24 hr 12/14/19 12/14/19 12/14/19 17:18 18:25 18:25 WBC 10.65 RBC 3.66 L Hgb 10.5 L POC Hgb Hct 30.3 L POC Hct MCV 82.8 MCH 28.7 MCHC 34.7 RDW Std Deviation 39.1 RDW Coeff of Vargas 12.9 Plt Count 269 MPV 10.4 Immature Gran % (Auto) 0.5 Neut % (Auto) 91.6 Lymph % (Auto) 4.8 [place] % (Auto) 3.0 Eos % (Auto) 0.0 Baso % (Auto) 0.1 Neut # (Auto) 9.76 H Lymph # (Auto) 0.51 L [place] # (Auto) 0.32 Eos # (Auto) 0.00 Baso # (Auto) 0.01 Immature Gran # (Auto) 0.05 H Fibrin Degrad Products D-Dimer Specimen Type Sample Site Patient Temperature POC pH POC pCO2 POC pO2 POC HCO3 POC Total CO2 POC Base Excess O2 Sat Pulse Oximetry ABG pH (Temp Correct) ABG pCO2 (Temp Corrct POC ABG pO2 at Pt Temp POC ABG O2 Sat Maximino Test VBG pH O2 Delivery Device POC O2 Rate Minute Ventilation Vent Mode POC FiO2 Tidal Volume End Tidal CO2 PEEP POC Sodium Sodium 120 L POC Potassium Potassium 4.4 Chloride 87 L Carbon Dioxide 20 L Anion Gap 13.0 H BUN 28 H Creatinine 1.47 H Est Cr Clr Drug Dosing 30.9 Est GFR ( Amer) 38.4 Est GFR (Non-Af Amer) 33.1 BUN/Creatinine Ratio 18.9 Glucose 308 H* POC Glucose Estimat Average Glucose Hemoglobin A1c Osmolality Lactate 4.3 H* Calcium 9.1 Phosphorus 4.3 Magnesium 1.7 L Ferritin 292.0 Total Bilirubin 0.4 Direct Bilirubin AST 23 ALT 25 Alkaline Phosphatase 74 Troponin I 0.041 C-Reactive Protein 17.30 H NT-Pro-B Natriuret Pep 2531 H Total Protein 7.7 Albumin 2.6 L Globulin 5.1 H Albumin/Globulin Ratio 0.5 L Beta-Hydroxybutyric Acd 2.15 Procalcitonin Urine Color Urine Appearance Urine pH Ur Specific [place] Urine Protein Urine Glucose (UA) Urine Ketones Urine Blood Urine Nitrite Urine Bilirubin Urine Urobilinogen Ur Leukocyte Esterase Urine WBC (Auto) Urine RBC (Auto) U Hyaline Cast (Auto) U Epithel Cells (Auto) Urine Bacteria (Auto) Ur Renal Epithelial Cell Granular Casts Ur Random Sodium Nasal Screen MRSA (PCR) Blood Type Antibody Screen 12/14/19 12/14/19 12/14/19 18:25 18:25 18:25 WBC RBC Hgb POC Hgb Hct POC Hct MCV MCH MCHC RDW Std Deviation RDW Coeff of Vargas Plt Count MPV Immature Gran % (Auto) Neut % (Auto) Lymph % (Auto) [place] % (Auto) Eos % (Auto) Baso % (Auto) Neut # (Auto) Lymph # (Auto) [place] # (Auto) Eos # (Auto) Baso # (Auto) Immature Gran # (Auto) Fibrin Degrad Products D-Dimer 1600 H* Specimen Type Sample Site Patient Temperature POC pH POC pCO2 POC pO2 POC HCO3 POC Total CO2 POC Base Excess O2 Sat Pulse Oximetry ABG pH (Temp Correct) ABG pCO2 (Temp Corrct POC ABG pO2 at Pt Temp POC ABG O2 Sat Maximino Test VBG pH O2 Delivery Device POC O2 Rate Minute Ventilation Vent Mode POC FiO2 Tidal Volume End Tidal CO2 PEEP POC Sodium Sodium POC Potassium Potassium Chloride Carbon Dioxide Anion Gap BUN Creatinine Est Cr Clr Drug Dosing Est GFR ( Amer) Est GFR (Non-Af Amer) BUN/Creatinine Ratio Glucose POC Glucose Estimat Average Glucose Hemoglobin A1c Osmolality 272 L Lactate Calcium Phosphorus Magnesium Ferritin Total Bilirubin Direct Bilirubin AST ALT Alkaline Phosphatase Troponin I C-Reactive Protein NT-Pro-B Natriuret Pep Total Protein Albumin Globulin Albumin/Globulin Ratio Beta-Hydroxybutyric Acd Procalcitonin 0.18 Urine Color Urine Appearance Urine pH Ur Specific [place] Urine Protein Urine Glucose (UA) Urine Ketones Urine Blood Urine Nitrite Urine Bilirubin Urine Urobilinogen Ur Leukocyte Esterase Urine WBC (Auto) Urine RBC (Auto) U Hyaline Cast (Auto) U Epithel Cells (Auto) Urine Bacteria (Auto) Ur Renal Epithelial Cell Granular Casts Ur Random Sodium Nasal Screen MRSA (PCR) Blood Type Antibody Screen 12/14/19 12/14/19 12/14/19 18:45 18:47 19:21 WBC RBC Hgb POC Hgb Hct POC Hct MCV MCH MCHC RDW Std Deviation RDW Coeff of Vargas Plt Count MPV Immature Gran % (Auto) Neut % (Auto) Lymph % (Auto) [place] % (Auto) Eos % (Auto) Baso % (Auto) Neut # (Auto) Lymph # (Auto) [place] # (Auto) Eos # (Auto) Baso # (Auto) Immature Gran # (Auto) Fibrin Degrad Products D-Dimer Specimen Type Sample Site Patient Temperature POC pH 7.43 POC pCO2 29 L POC pO2 121 H POC HCO3 19 POC Total CO2 20 L POC Base Excess -5.0 O2 Sat Pulse Oximetry ABG pH (Temp Correct) ABG pCO2 (Temp Corrct POC ABG pO2 at Pt Temp POC ABG O2 Sat 99.0 H Maximino Test VBG pH 7.33 L O2 Delivery Device POC O2 Rate Minute Ventilation Vent Mode POC FiO2 Tidal Volume End Tidal CO2 PEEP POC Sodium Sodium POC Potassium Potassium Chloride Carbon Dioxide Anion Gap BUN Creatinine Est Cr Clr Drug Dosing Est GFR ( Amer) Est GFR (Non-Af Amer) BUN/Creatinine Ratio Glucose POC Glucose Estimat Average Glucose Hemoglobin A1c Osmolality Lactate Calcium Phosphorus Magnesium Ferritin Total Bilirubin Direct Bilirubin AST ALT Alkaline Phosphatase Troponin I C-Reactive Protein NT-Pro-B Natriuret Pep Total Protein Albumin Globulin Albumin/Globulin Ratio Beta-Hydroxybutyric Acd Procalcitonin Urine Color Urine Appearance Urine pH Ur Specific [place] Urine Protein Urine Glucose (UA) Urine Ketones Urine Blood Urine Nitrite Urine Bilirubin Urine Urobilinogen Ur Leukocyte Esterase Urine WBC (Auto) Urine RBC (Auto) U Hyaline Cast (Auto) U Epithel Cells (Auto) Urine Bacteria (Auto) Ur Renal Epithelial Cell Granular Casts Ur Random Sodium Nasal Screen MRSA (PCR) Blood Type B Positive Antibody Screen NEGATIVE 12/14/19 12/14/19 12/14/19 20:25 20:27 20:45 WBC RBC Hgb POC Hgb Hct POC Hct MCV MCH MCHC RDW Std Deviation RDW Coeff of Vargas Plt Count MPV Immature Gran % (Auto) Neut % (Auto) Lymph % (Auto) [place] % (Auto) Eos % (Auto) Baso % (Auto) Neut # (Auto) Lymph # (Auto) [place] # (Auto) Eos # (Auto) Baso # (Auto) Immature Gran # (Auto) Fibrin Degrad Products D-Dimer Specimen Type Sample Site Patient Temperature POC pH POC pCO2 POC pO2 POC HCO3 POC Total CO2 POC Base Excess O2 Sat Pulse Oximetry ABG pH (Temp Correct) ABG pCO2 (Temp Corrct POC ABG pO2 at Pt Temp POC ABG O2 Sat Maximino Test VBG pH O2 Delivery Device POC O2 Rate Minute Ventilation Vent Mode POC FiO2 Tidal Volume End Tidal CO2 PEEP POC Sodium Sodium POC Potassium Potassium Chloride Carbon Dioxide Anion Gap BUN Creatinine Est Cr Clr Drug Dosing Est GFR ( Amer) Est GFR (Non-Af Amer) BUN/Creatinine Ratio Glucose POC Glucose 394 H* Estimat Average Glucose Hemoglobin A1c Osmolality Lactate 3.4 H* Calcium Phosphorus Magnesium Ferritin Total Bilirubin Direct Bilirubin AST ALT Alkaline Phosphatase Troponin I C-Reactive Protein NT-Pro-B Natriuret Pep Total Protein Albumin Globulin Albumin/Globulin Ratio Beta-Hydroxybutyric Acd Procalcitonin Urine Color Urine Appearance Urine pH Ur Specific [place] Urine Protein Urine Glucose (UA) Urine Ketones Urine Blood Urine Nitrite Urine Bilirubin Urine Urobilinogen Ur Leukocyte Esterase Urine WBC (Auto) Urine RBC (Auto) U Hyaline Cast (Auto) U Epithel Cells (Auto) Urine Bacteria (Auto) Ur Renal Epithelial Cell Granular Casts Ur Random Sodium Nasal Screen MRSA (PCR) Negative Blood Type Antibody Screen 12/14/19 12/14/19 12/14/19 22:55 22:55 22:55 WBC RBC Hgb POC Hgb Hct POC Hct MCV MCH MCHC RDW Std Deviation RDW Coeff of Vargas Plt Count MPV Immature Gran % (Auto) Neut % (Auto) Lymph % (Auto) [place] % (Auto) Eos % (Auto) Baso % (Auto) Neut # (Auto) Lymph # (Auto) [place] # (Auto) Eos # (Auto) Baso # (Auto) Immature Gran # (Auto) Fibrin Degrad Products D-Dimer Specimen Type Sample Site Patient Temperature POC pH POC pCO2 POC pO2 POC HCO3 POC Total CO2 POC Base Excess O2 Sat Pulse Oximetry ABG pH (Temp Correct) ABG pCO2 (Temp Corrct POC ABG pO2 at Pt Temp POC ABG O2 Sat Maximino Test VBG pH 7.37 O2 Delivery Device POC O2 Rate Minute Ventilation Vent Mode POC FiO2 Tidal Volume End Tidal CO2 PEEP POC Sodium Sodium 120 L POC Potassium Potassium 4.3 Chloride 88 L Carbon Dioxide 21 Anion Gap 10.0 BUN 34 H Creatinine 1.52 H Est Cr Clr Drug Dosing 29.9 Est GFR ( Amer) 36.9 Est GFR (Non-Af Amer) 31.8 BUN/Creatinine Ratio 22.6 H Glucose 348 H* POC Glucose Estimat Average Glucose Hemoglobin A1c Osmolality Lactate Calcium 8.6 Phosphorus 3.8 Magnesium 1.7 L Ferritin Total Bilirubin Direct Bilirubin AST ALT Alkaline Phosphatase Troponin I 0.017 C-Reactive Protein NT-Pro-B Natriuret Pep Total Protein Albumin Globulin Albumin/Globulin Ratio Beta-Hydroxybutyric Acd 2.54 Procalcitonin Urine Color Urine Appearance Urine pH Ur Specific [place] Urine Protein Urine Glucose (UA) Urine Ketones Urine Blood Urine Nitrite Urine Bilirubin Urine Urobilinogen Ur Leukocyte Esterase Urine WBC (Auto) Urine RBC (Auto) U Hyaline Cast (Auto) U Epithel Cells (Auto) Urine Bacteria (Auto) Ur Renal Epithelial Cell Granular Casts Ur Random Sodium Nasal Screen MRSA (PCR) Blood Type Antibody Screen 12/14/19 12/14/19 12/15/19 23:30 23:30 00:56 WBC RBC Hgb POC Hgb Hct POC Hct MCV MCH MCHC RDW Std Deviation RDW Coeff of Vargas Plt Count MPV Immature Gran % (Auto) Neut % (Auto) Lymph % (Auto) [place] % (Auto) Eos % (Auto) Baso % (Auto) Neut # (Auto) Lymph # (Auto) [place] # (Auto) Eos # (Auto) Baso # (Auto) Immature Gran # (Auto) Fibrin Degrad Products D-Dimer Specimen Type Sample Site Patient Temperature POC pH POC pCO2 POC pO2 POC HCO3 POC Total CO2 POC Base Excess O2 Sat Pulse Oximetry ABG pH (Temp Correct) ABG pCO2 (Temp Corrct POC ABG pO2 at Pt Temp POC ABG O2 Sat Maximino Test VBG pH O2 Delivery Device POC O2 Rate Minute Ventilation Vent Mode POC FiO2 Tidal Volume End Tidal CO2 PEEP POC Sodium Sodium POC Potassium Potassium Chloride Carbon Dioxide Anion Gap BUN Creatinine Est Cr Clr Drug Dosing Est GFR ( Amer) Est GFR (Non-Af Amer) BUN/Creatinine Ratio Glucose POC Glucose 367 H* Estimat Average Glucose Hemoglobin A1c Osmolality Lactate Calcium Phosphorus Magnesium Ferritin Total Bilirubin Direct Bilirubin AST ALT Alkaline Phosphatase Troponin I C-Reactive Protein NT-Pro-B Natriuret Pep Total Protein Albumin Globulin Albumin/Globulin Ratio Beta-Hydroxybutyric Acd Procalcitonin Urine Color Yellow Urine Appearance Clear Urine pH 5.0 Ur Specific [place] 1.014 Urine Protein 1+ H Urine Glucose (UA) 2+ H Urine Ketones Negative Urine Blood Trace H Urine Nitrite Negative Urine Bilirubin Negative Urine Urobilinogen Negative Ur Leukocyte Esterase Trace H Urine WBC (Auto) 10-30 H Urine RBC (Auto) 0-4 U Hyaline Cast (Auto) 10-30 H U Epithel Cells (Auto) >30 H Urine Bacteria (Auto) Negative Ur Renal Epithelial Cell Not Reportable Granular Casts 1-5 H Ur Random Sodium 74 Nasal Screen MRSA (PCR) Blood Type Antibody Screen 12/15/19 12/15/19 12/15/19 02:21 02:39 02:39 WBC RBC Hgb POC Hgb Hct POC Hct MCV MCH MCHC RDW Std Deviation RDW Coeff of Vargas Plt Count MPV Immature Gran % (Auto) Neut % (Auto) Lymph % (Auto) [place] % (Auto) Eos % (Auto) Baso % (Auto) Neut # (Auto) Lymph # (Auto) [place] # (Auto) Eos # (Auto) Baso # (Auto) Immature Gran # (Auto) Fibrin Degrad Products D-Dimer Specimen Type Sample Site Patient Temperature POC pH POC pCO2 POC pO2 POC HCO3 POC Total CO2 POC Base Excess O2 Sat Pulse Oximetry ABG pH (Temp Correct) ABG pCO2 (Temp Corrct POC ABG pO2 at Pt Temp POC ABG O2 Sat Maximino Test VBG pH O2 Delivery Device POC O2 Rate Minute Ventilation Vent Mode POC FiO2 Tidal Volume End Tidal CO2 PEEP POC Sodium Sodium 121 L POC Potassium Potassium 3.7 Chloride 87 L Carbon Dioxide 21 Anion Gap 13.0 H BUN 37 H Creatinine 1.43 H Est Cr Clr Drug Dosing 31.8 Est GFR ( Amer) 39.7 Est GFR (Non-Af Amer) 34.3 BUN/Creatinine Ratio 25.6 H Glucose 307 H* POC Glucose 348 H* Estimat Average Glucose Hemoglobin A1c Osmolality Lactate Calcium 9.0 Phosphorus 3.9 Magnesium 1.8 Ferritin Total Bilirubin 0.5 Direct Bilirubin 0.2 AST 19 ALT 21 Alkaline Phosphatase 69 Troponin I C-Reactive Protein NT-Pro-B Natriuret Pep Total Protein 7.4 Albumin 2.4 L Globulin Albumin/Globulin Ratio Beta-Hydroxybutyric Acd 5.74 H Procalcitonin Urine Color Urine Appearance Urine pH Ur Specific [place] Urine Protein Urine Glucose (UA) Urine Ketones Urine Blood Urine Nitrite Urine Bilirubin Urine Urobilinogen Ur Leukocyte Esterase Urine WBC (Auto) Urine RBC (Auto) U Hyaline Cast (Auto) U Epithel Cells (Auto) Urine Bacteria (Auto) Ur Renal Epithelial Cell Granular Casts Ur Random Sodium Nasal Screen MRSA (PCR) Blood Type Antibody Screen 12/15/19 12/15/19 12/15/19 02:39 02:39 03:11 WBC RBC Hgb POC Hgb Hct POC Hct MCV MCH MCHC RDW Std Deviation RDW Coeff of Vargas Plt Count MPV Immature Gran % (Auto) Neut % (Auto) Lymph % (Auto) [place] % (Auto) Eos % (Auto) Baso % (Auto) Neut # (Auto) Lymph # (Auto) [place] # (Auto) Eos # (Auto) Baso # (Auto) Immature Gran # (Auto) Fibrin Degrad Products D-Dimer Specimen Type Sample Site Patient Temperature POC pH POC pCO2 POC pO2 POC HCO3 POC Total CO2 POC Base Excess O2 Sat Pulse Oximetry ABG pH (Temp Correct) ABG pCO2 (Temp Corrct POC ABG pO2 at Pt Temp POC ABG O2 Sat Maximino Test VBG pH 7.39 O2 Delivery Device POC O2 Rate Minute Ventilation Vent Mode POC FiO2 Tidal Volume End Tidal CO2 PEEP POC Sodium Sodium POC Potassium Potassium Chloride Carbon Dioxide Anion Gap BUN Creatinine Est Cr Clr Drug Dosing Est GFR ( Amer) Est GFR (Non-Af Amer) BUN/Creatinine Ratio Glucose POC Glucose 338 H* Estimat Average Glucose 194 Hemoglobin A1c 8.4 H Osmolality Lactate Calcium Phosphorus Magnesium Ferritin Total Bilirubin Direct Bilirubin AST ALT Alkaline Phosphatase Troponin I C-Reactive Protein NT-Pro-B Natriuret Pep Total Protein Albumin Globulin Albumin/Globulin Ratio Beta-Hydroxybutyric Acd Procalcitonin Urine Color Urine Appearance Urine pH Ur Specific [place] Urine Protein Urine Glucose (UA) Urine Ketones Urine Blood Urine Nitrite Urine Bilirubin Urine Urobilinogen Ur Leukocyte Esterase Urine WBC (Auto) Urine RBC (Auto) U Hyaline Cast (Auto) U Epithel Cells (Auto) Urine Bacteria (Auto) Ur Renal Epithelial Cell Granular Casts Ur Random Sodium Nasal Screen MRSA (PCR) Blood Type Antibody Screen 12/15/19 12/15/19 12/15/19 05:03 07:01 07:01 WBC RBC Hgb POC Hgb Hct POC Hct MCV MCH MCHC RDW Std Deviation RDW Coeff of Vargas Plt Count MPV Immature Gran % (Auto) Neut % (Auto) Lymph % (Auto) [place] % (Auto) Eos % (Auto) Baso % (Auto) Neut # (Auto) Lymph # (Auto) [place] # (Auto) Eos # (Auto) Baso # (Auto) Immature Gran # (Auto) Fibrin Degrad Products >40 H D-Dimer Specimen Type Sample Site Patient Temperature POC pH POC pCO2 POC pO2 POC HCO3 POC Total CO2 POC Base Excess O2 Sat Pulse Oximetry ABG pH (Temp Correct) ABG pCO2 (Temp Corrct POC ABG pO2 at Pt Temp POC ABG O2 Sat Maximino Test VBG pH 7.44 H O2 Delivery Device POC O2 Rate Minute Ventilation Vent Mode POC FiO2 Tidal Volume End Tidal CO2 PEEP POC Sodium Sodium POC Potassium Potassium Chloride Carbon Dioxide Anion Gap BUN Creatinine Est Cr Clr Drug Dosing Est GFR ( Amer) Est GFR (Non-Af Amer) BUN/Creatinine Ratio Glucose POC Glucose 328 H* Estimat Average Glucose Hemoglobin A1c Osmolality Lactate Calcium Phosphorus Magnesium Ferritin Total Bilirubin Direct Bilirubin AST ALT Alkaline Phosphatase Troponin I C-Reactive Protein NT-Pro-B Natriuret Pep Total Protein Albumin Globulin Albumin/Globulin Ratio Beta-Hydroxybutyric Acd Procalcitonin Urine Color Urine Appearance Urine pH Ur Specific [place] Urine Protein Urine Glucose (UA) Urine Ketones Urine Blood Urine Nitrite Urine Bilirubin Urine Urobilinogen Ur Leukocyte Esterase Urine WBC (Auto) Urine RBC (Auto) U Hyaline Cast (Auto) U Epithel Cells (Auto) Urine Bacteria (Auto) Ur Renal Epithelial Cell Granular Casts Ur Random Sodium Nasal Screen MRSA (PCR) Blood Type Antibody Screen 12/15/19 12/15/19 12/15/19 07:02 07:02 07:02 WBC 9.62 RBC 3.99 L Hgb 11.4 L POC Hgb Hct 31.9 L POC Hct MCV 79.9 L MCH 28.6 MCHC 35.7 RDW Std Deviation 37.0 RDW Coeff of Vargas 12.6 Plt Count 300 MPV 10.0 Immature Gran % (Auto) 0.6 Neut % (Auto) 84.0 Lymph % (Auto) 8.4 [place] % (Auto) 6.9 Eos % (Auto) 0.0 Baso % (Auto) 0.1 Neut # (Auto) 8.08 H Lymph # (Auto) 0.81 L [place] # (Auto) 0.66 H Eos # (Auto) 0.00 Baso # (Auto) 0.01 Immature Gran # (Auto) 0.06 H Fibrin Degrad Products D-Dimer Specimen Type Sample Site Patient Temperature POC pH POC pCO2 POC pO2 POC HCO3 POC Total CO2 POC Base Excess O2 Sat Pulse Oximetry ABG pH (Temp Correct) ABG pCO2 (Temp Corrct POC ABG pO2 at Pt Temp POC ABG O2 Sat Maximino Test VBG pH O2 Delivery Device POC O2 Rate Minute Ventilation Vent Mode POC FiO2 Tidal Volume End Tidal CO2 PEEP POC Sodium Sodium 121 L POC Potassium Potassium 3.6 Chloride 88 L Carbon Dioxide 23 Anion Gap 10.0 BUN 36 H Creatinine 1.32 H Est Cr Clr Drug Dosing 34.4 Est GFR ( Amer) 43.7 Est GFR (Non-Af Amer) 37.7 BUN/Creatinine Ratio 27.3 H Glucose 269 H POC Glucose Estimat Average Glucose Hemoglobin A1c Osmolality Lactate Calcium 9.4 Phosphorus 3.7 Magnesium 2.0 Ferritin Total Bilirubin Direct Bilirubin AST ALT Alkaline Phosphatase Troponin I < 0.015 C-Reactive Protein NT-Pro-B Natriuret Pep Total Protein Albumin Globulin Albumin/Globulin Ratio Beta-Hydroxybutyric Acd Procalcitonin Urine Color Urine Appearance Urine pH Ur Specific [place] Urine Protein Urine Glucose (UA) Urine Ketones Urine Blood Urine Nitrite Urine Bilirubin Urine Urobilinogen Ur Leukocyte Esterase Urine WBC (Auto) Urine RBC (Auto) U Hyaline Cast (Auto) U Epithel Cells (Auto) Urine Bacteria (Auto) Ur Renal Epithelial Cell Granular Casts Ur Random Sodium Nasal Screen MRSA (PCR) Blood Type Antibody Screen 12/15/19 12/15/19 12/15/19 07:02 07:02 07:37 WBC RBC Hgb POC Hgb 10.5 L Hct POC Hct 31 L MCV MCH MCHC RDW Std Deviation RDW Coeff of Vargas Plt Count MPV Immature Gran % (Auto) Neut % (Auto) Lymph % (Auto) [place] % (Auto) Eos % (Auto) Baso % (Auto) Neut # (Auto) Lymph # (Auto) [place] # (Auto) Eos # (Auto) Baso # (Auto) Immature Gran # (Auto) Fibrin Degrad Products D-Dimer Specimen Type Arterial Sample Site L Brachial Patient Temperature 37.0 POC pH 7.50 H POC pCO2 26 L POC pO2 112 H POC HCO3 20 POC Total CO2 21 L POC Base Excess -3.0 O2 Sat Pulse Oximetry 100 ABG pH (Temp Correct) 7.504 H* ABG pCO2 (Temp Corrct 26 L POC ABG pO2 at Pt Temp 112 POC ABG O2 Sat 99.0 H Maximino Test Acceptable VBG pH O2 Delivery Device Ventilator POC O2 Rate 28 Minute Ventilation 9 Vent Mode AC POC FiO2 60 Tidal Volume 350 End Tidal CO2 28 PEEP 8 POC Sodium 123 L Sodium POC Potassium 3.5 Potassium Chloride Carbon Dioxide Anion Gap BUN Creatinine Est Cr Clr Drug Dosing Est GFR ( Amer) Est GFR (Non-Af Amer) BUN/Creatinine Ratio Glucose POC Glucose Estimat Average Glucose Hemoglobin A1c Osmolality Lactate Calcium Phosphorus Magnesium Ferritin 341.2 Total Bilirubin Direct Bilirubin AST ALT Alkaline Phosphatase Troponin I C-Reactive Protein NT-Pro-B Natriuret Pep Total Protein Albumin Globulin Albumin/Globulin Ratio Beta-Hydroxybutyric Acd Procalcitonin 0.28 Urine Color Urine Appearance Urine pH Ur Specific [place] Urine Protein Urine Glucose (UA) Urine Ketones Urine Blood Urine Nitrite Urine Bilirubin Urine Urobilinogen Ur Leukocyte Esterase Urine WBC (Auto) Urine RBC (Auto) U Hyaline Cast (Auto) U Epithel Cells (Auto) Urine Bacteria (Auto) Ur Renal Epithelial Cell Granular Casts Ur Random Sodium Nasal Screen MRSA (PCR) Blood Type Antibody Screen 12/15/19 12/15/19 12/15/19 07:42 09:59 10:10 WBC RBC Hgb POC Hgb Hct POC Hct MCV MCH MCHC RDW Std Deviation RDW Coeff of Vargas Plt Count MPV Immature Gran % (Auto) Neut % (Auto) Lymph % (Auto) [place] % (Auto) Eos % (Auto) Baso % (Auto) Neut # (Auto) Lymph # (Auto) [place] # (Auto) Eos # (Auto) Baso # (Auto) Immature Gran # (Auto) Fibrin Degrad Products D-Dimer Specimen Type Sample Site Patient Temperature POC pH POC pCO2 POC pO2 POC HCO3 POC Total CO2 POC Base Excess O2 Sat Pulse Oximetry ABG pH (Temp Correct) ABG pCO2 (Temp Corrct POC ABG pO2 at Pt Temp POC ABG O2 Sat Maximino Test VBG pH O2 Delivery Device POC O2 Rate Minute Ventilation Vent Mode POC FiO2 Tidal Volume End Tidal CO2 PEEP POC Sodium Sodium 123 L POC Potassium Potassium 3.5 Chloride 90 L Carbon Dioxide 23 Anion Gap 10.0 BUN 36 H Creatinine 1.21 H Est Cr Clr Drug Dosing 37.5 Est GFR ( Amer) 48.6 Est GFR (Non-Af Amer) 41.9 BUN/Creatinine Ratio 29.4 H Glucose 239 H POC Glucose 283 H 259 H Estimat Average Glucose Hemoglobin A1c Osmolality Lactate Calcium 9.0 Phosphorus 3.9 Magnesium 2.1 Ferritin Total Bilirubin Direct Bilirubin AST ALT Alkaline Phosphatase Troponin I C-Reactive Protein NT-Pro-B Natriuret Pep Total Protein Albumin Globulin Albumin/Globulin Ratio Beta-Hydroxybutyric Acd Procalcitonin Urine Color Urine Appearance Urine pH Ur Specific [place] Urine Protein Urine Glucose (UA) Urine Ketones Urine Blood Urine Nitrite Urine Bilirubin Urine Urobilinogen Ur Leukocyte Esterase Urine WBC (Auto) Urine RBC (Auto) U Hyaline Cast (Auto) U Epithel Cells (Auto) Urine Bacteria (Auto) Ur Renal Epithelial Cell Granular Casts Ur Random Sodium Nasal Screen MRSA (PCR) Blood Type Antibody Screen 12/15/19 12/15/19 10:10 11:31 WBC RBC Hgb POC Hgb Hct POC Hct MCV MCH MCHC RDW Std Deviation RDW Coeff of Vargas Plt Count MPV Immature Gran % (Auto) Neut % (Auto) Lymph % (Auto) [place] % (Auto) Eos % (Auto) Baso % (Auto) Neut # (Auto) Lymph # (Auto) [place] # (Auto) Eos # (Auto) Baso # (Auto) Immature Gran # (Auto) Fibrin Degrad Products D-Dimer Specimen Type Sample Site Patient Temperature POC pH POC pCO2 POC pO2 POC HCO3 POC Total CO2 POC Base Excess O2 Sat Pulse Oximetry ABG pH (Temp Correct) ABG pCO2 (Temp Corrct POC ABG pO2 at Pt Temp POC ABG O2 Sat Maximino Test VBG pH 7.37 O2 Delivery Device POC O2 Rate Minute Ventilation Vent Mode POC FiO2 Tidal Volume End Tidal CO2 PEEP POC Sodium Sodium POC Potassium Potassium Chloride Carbon Dioxide Anion Gap BUN Creatinine Est Cr Clr Drug Dosing Est GFR ( Amer) Est GFR (Non-Af Amer) BUN/Creatinine Ratio Glucose POC Glucose 261 H Estimat Average Glucose Hemoglobin A1c Osmolality Lactate Calcium Phosphorus Magnesium Ferritin Total Bilirubin Direct Bilirubin AST ALT Alkaline Phosphatase Troponin I C-Reactive Protein NT-Pro-B Natriuret Pep Total Protein Albumin Globulin Albumin/Globulin Ratio Beta-Hydroxybutyric Acd Procalcitonin Urine Color Urine Appearance Urine pH Ur Specific [place] Urine Protein Urine Glucose (UA) Urine Ketones Urine Blood Urine Nitrite Urine Bilirubin Urine Urobilinogen Ur Leukocyte Esterase Urine WBC (Auto) Urine RBC (Auto) U Hyaline Cast (Auto) U Epithel Cells (Auto) Urine Bacteria (Auto) Ur Renal Epithelial Cell Granular Casts Ur Random Sodium Nasal Screen MRSA (PCR) Blood Type Antibody Screen PG Care Time/CCT Total # of Minutes Spent Total Time Spent with Patient: Total time spent is greater than 50% in coordination of care (as documented) at patient's floor/unit and/or counseling patient: Coding Level of Care Code 67387 Subseq Hosp Care Lvl 2 Diagnoses Pneumonia due to 2019 novel coronavirus U07.1; J12.89 Acute hypoxemic respiratory failure J96.01 Severe sepsis A41.9; R65.20 Coronary artery disease I25.10 Diabetes E11.9 E. coli UTI N39.0; B96.20 History of CVA (cerebrovascular accident) Z86.73 Acute tubular necrosis N17.0 MICHAEL (acute kidney injury) N17.9 Hyponatremia E87.1 Hypothermia T68.XXXA DVT prophylaxis Z29.9
--- NOTE | 2019-12-15 14:42 | Pharmacy Report ---
Pharmacy Glycemic Short Note 2 - Date of Service December 15, 2019 - Glycemic Short BSG Results (Last 24 hours): 12/14/19 12/14/19 12/14/19 18:25 20:25 22:55 Glucose 308 H* 348 H* POC Glucose 394 H* 12/15/19 12/15/19 12/15/19 00:56 02:21 02:39 Glucose 307 H* POC Glucose 367 H* 348 H* 12/15/19 12/15/19 12/15/19 03:11 05:03 07:02 Glucose 269 H POC Glucose 338 H* 328 H* 12/15/19 12/15/19 12/15/19 07:42 09:59 10:10 Glucose 239 H POC Glucose 283 H 259 H 12/15/19 12/15/19 11:31 13:35 Glucose POC Glucose 261 H 247 H OUTPATIENT ANTIDIABETIC REGIMEN: * Metformin 500mg BID? (from exterenal med history) * A1C: 8.4% 12/15/19 ASSESSMENT: * Patient presenting with hyperglycemia in the setting of COVID-19 pneumonia. Patient was initiated on IV dexamethsone and pressors. * Tube feeds were initiated this afternoon, but will likely not reach goal for another ~24 hours. I did tighten the insulin infusion goal range as this does not appear to be DKA. Low dose lantus was also initiated to help assist with eventual drip transition. Dosing was conservative given pressors and minimal/changing PO intake today. PLAN FOR INPATIENT GLYCEMIC CONTROL: * Hold outpatient oral diabetes medications * IV insulin infusion Started yesterday per severe stress protocol * Goal Range 150 - 250 mg/dl; this was changed to 140-180 mg/dL this afternoon * In the critical care setting, continuous IV insulin infusion has been shown to be the best method for achieving glycemic targets. * Basal insulin * Lantus 10 units SQ BID (to help facilitate eventual drip transition) * Bolus insulin * NovoLog per scale ACHS as per insulin infusion calculator * For Peptamen 1.5 tracy = 184 g CHO/L 10 mL/hr = 11 g CHO q6h 15 mL/hr = 16 g CHO q6h 20 mL/hr = 22 g CHO q6h 25 mL/hr = 27 g CHO q6h 30 mL/hr = 33 g CHO q6h 35 mL/hr = 38 g CHO q6h 40 mL/hr = 44 g CHO q6h 45 mL/hr = 49 g CHO q6h PLAN FOR DISCHARGE: * TBD
[2019-12-15 15:11] LABS: BUN Creatinine Ratio 31.3 (10-20); Calcium 8.8 mg/dl (8.5-10.1); Creatinine Clr Calc Pharmacy 40.9 ml/min; Est GFR (African American) 53.9; Est GFR (Non-African American) 46.5; Potassium 3.6 mmol/L (3.5-5.1)
[2019-12-15] MEDS ORDERED: INSULIN ASPART 100 UNITS/ML 3 ML PEN SQ SCH (20:00)
[2019-12-15] MEDS: fentaNYL DRIP 1,250 MCG/250 ML BAG IV SCH (20:15)
[2019-12-16] MEDS: propofoL 1,000 MG/100 ML VIAL IV SCH ×2 (00:52→07:12)
[2019-12-16] MEDS: AZTREONAM 1,000 MG in DEXTROSE 5% 100 ML IV SCH ×3 (05:11→19:31)
[2019-12-16 06:06] LABS: Basophils # (auto) 0.01 K/uL (0-0.2); Basophils % (auto) 0.1 %; Hematocrit (blood only) 28.3 % (37-47); Hemoglobin 10.1 g/dL (12.0-16.0); Immature Granulocytes # (auto) 0.07 K/uL (0.00-0.02); Immature Granulocytes % (auto) 0.5 %; Lymphocytes # (auto) 1.07 K/uL (1.2-3.4); Lymphocytes % (auto) 8.1 %; Mean Corpuscular Hemoglobin 28.9 pg (25-34); Mean Corpuscular Hgb Conc 35.7 g/dL (32-36); Mean Corpuscular Volume 80.9 fL (80-100); Mean Platelet Volume 10.1 fL (7.4-10.4); Monocytes # (auto) 0.93 K/uL (0.11-0.59); Neutrophils # (auto) 11.18 K/uL (1.4-6.5); Neutrophils % (auto) 84.3 %; Platelet Count 268 K/uL (130-400); RDW Standard Deviation 38.6 fL (36.4-46.3); White Blood Count 13.26 K/uL (4.8-10.8)
[2019-12-16] MEDS: INSULIN REGULAR 250 UNITS in SODIUM CHLORIDE 0.9% 247.5 ML IV SCH ×2 (07:15→22:36)
[2019-12-16 07:29] LABS: BUN Creatinine Ratio 36.5 (10-20); Calcium 9.4 mg/dl (8.5-10.1); Creatinine Clr Calc Pharmacy 42.6 ml/min; Est GFR (African American) 58.4; Est GFR (Non-African American) 50.3; Magnesium 2.2 mg/dl (1.8-2.4); Phosphorus 3.6 mg/dl (2.5-4.9); Potassium 3.5 mmol/L (3.5-5.1)
[2019-12-16] MEDS: REMDESIVIR 100mg: Days 2-5 IV SCH (08:10)
[2019-12-16] MEDS: DEXAMETHASONE SOD PHOSPHATE 6 MG in SYRINGE 0 ML IV SCH (08:10)
[2019-12-16] MEDS: FAMOTIDINE 20 MG in SYRINGE 3 ML IV SCH (08:10)
[2019-12-16] MEDS: NSS 30mL Flush, Days 1-5 IV SCH (08:11)
[2019-12-16] MEDS: ENOXAPARIN INJ 40 MG/0.4 ML SYR SQ SCH ×2 (08:11→19:31)
[2019-12-16] MEDS: INSULIN ASPART 100 UNITS/ML 3 ML PEN SC SCH ×4 (08:11→19:36)
[2019-12-16] MEDS: CLOPIDOGREL BISULFATE 75 MG TAB PEG SCH (08:11)
[2019-12-16] MEDS: INSULIN GLARGINE SOLOSTAR 100 UNITS/ML 3 ML PEN SC SCH ×2 (08:12→19:36)
[2019-12-16] MEDS: NOREPINEPHRINE BIT INJ 8 MG in DEXTROSE 5% 500 ML IV SCH ×2 (08:13→22:02)
[2019-12-16] MEDS: ASPIRIN 81 MG CHEW NG SCH (08:21)
[2019-12-16] MEDS ORDERED: ONDANSETRON INJ 2 MG/ML 2 ML VIAL IV ONE (09:13)
--- NOTE | 2019-12-16 09:31 | Critical Care Progress Note ---
Date of Service December 16, 2019 Assessment & Plan (1) Pneumonia due to 2019 novel coronavirus: Patient was discussed on multidisciplinary rounds. Assessment and Plan: -Acute hypoxemic respiratory failure secondary to COVID pneumonitis -Hypertensive urgency -Sedation related hypotension -History of CAD -History of CVA -Hyperglycemia with a history of diabetes mellitus -Acute hyponatremia -Complicated urinary tract infection Neurologic: We are weaning down propofol and fentanyl to see how she does with a spontaneous awakening trial. She has a history of CVA. Continue aspirin. Pulmonary: Ventilator: Continuing to wean the ventilator settings. She is currently on 18/350/0.45/5 Head of the bed elevated to 30 degrees Continue therapies for Covid pneumonitis Cardiovascular: Her pressors are weaned off. Echocardiogram with a normal EF. Gastrointestinal: Bowel regimen Stress ulcer prophylaxis: Continue famotidine twice daily. Holding tube feeds for possible extubation. Renal: Hyponatremia is improving slowly. Possible SIADH related to Covid pneumonia. Urine sodium is 74. Infectious disease: Per the outside facility, she had a UA that was consistent with a E. coli. She apparently has penicillin allergy. She was on aztreonam. Continue treatment for 7 days. MRSA screen was negative. Procalcitonin negative. Repeat procalcitonin is negative as well. Blood cultures negative thus far. Continue remdesivir, Decadron. She did receive convalescent plasma. Hematologic: Patient has evidence of mild anemia. Ferritin was not substantially elevated. D-dimer is elevated, but nonspecific. Endocrine: Continue insulin drip. Management per ICU pharmacist. F/E/N: Tube feeds on hold Lines and tubes: Peripheral IVs and central line in place. Ritter in place. VTE prophylaxis: Continue Lovenox 40 mg daily. CODE STATUS: Full code at present Family at bedside: Not available due to the COVID-19 pandemic Disposition: Patient is critically ill I have personally spent 43 minutes of critical care time in the direct management of this patient. This is a life/limb threatening event. This includes time spent evaluating patient, direct bedside care, chart review, placing orders, interpretation of diagnostic studies, discussion with consultants, patient, and family members, as well as other required patient management activities. This time is exclusive of all separately billable procedures, and teaching time and separate from and in addition to any other critical care service time. Thank you for allowing us to participate in the care of this patient. (2) Acute hypoxemic respiratory failure: (3) Coronary artery disease: (4) Endotracheally intubated: (5) Hypertensive urgency: (6) Complicated UTI (urinary tract infection): Admission and Anticipated Discharge Date Admission Date: December 14, 2019 Subjective Patient remains sedated on propofol and fentanyl. She is responsive to commands and opens her eyes spontaneously. She is off the Levophed. No significant events overnight. This morning she did have mild desaturation event and was increased to 60% FiO2 on the ventilator. I have decreased her down to 45% FiO2. Review of Systems Review of Systems: All systems reviewed & are unremarkable except as noted in HPI & below Physical Exam Constitutional: Patient is currently intubated and sedated. Eyes: PERRL, conjunctivae normal, anicteric sclerae ENMT: external ear and nose normal, oropharynx normal Neck: + thick neck Respiratory: Coarse breath sounds bilaterally on the ventilator Cardiovascular: RRR, no murmur, no edema Gastrointestinal (Abdomen): normal bowel sounds, soft, nontender, no hepatosplenomegaly Musculoskeletal: no cyanosis or clubbing, extremities motor strength 5/5 Skin: no rashes, warm and dry Neurologic: No focal deficits noted. Exam limited due to sedation. Psychiatric: Unable to assess due to her intubation status. Results & Data Results & Data ([facility]) Vital Signs (Past 12 Hours) Vital Signs Temp Pulse Pulse Resp BP BP Pulse Ox 12/16/19 08:41 96.4 F L 54 L 18 174/62 H 100 12/16/19 08:31 49 L 18 177/64 H 98 12/16/19 08:30 49 L 20 177/64 H 96 12/16/19 08:22 48 L 20 157/54 H 97 12/16/19 08:12 48 L 19 90 12/16/19 08:11 46 L 20 98/42 L 91 12/16/19 08:00 48 L 20 104/40 L 90 12/16/19 07:51 49 L 18 101/40 L 90 12/16/19 07:30 97.2 F L 52 L 20 109/42 L 90 12/16/19 07:21 55 L 18 125/46 L 97 12/16/19 07:12 53 L 20 144/49 H 94 12/16/19 07:00 45 L 18 137/53 L 94 12/16/19 03:40 51 L 21 97 12/16/19 02:40 46 L 135/53 L 98 12/16/19 02:30 47 L 122/50 L 97 12/16/19 02:20 49 L 134/53 L 99 12/16/19 02:10 47 L 129/50 L 98 12/16/19 02:00 47 L 128/48 L 97 12/16/19 01:50 48 L 135/50 L 95 12/16/19 01:40 50 L 160/54 H 97 12/16/19 01:30 54 L 163/59 H 96 12/16/19 01:20 46 L 145/50 H 97 12/16/19 01:10 45 L 137/53 L 97 12/16/19 01:00 46 L 131/53 L 96 12/16/19 00:50 47 L 131/46 L 94 12/16/19 00:40 54 L 156/54 H 100 12/16/19 00:35 46 L 16 126/53 L 98 12/16/19 00:34 46 L 126/53 L 97 12/16/19 00:30 52 L 123/51 L 96 12/16/19 00:20 48 L 130/50 L 97 12/16/19 00:10 46 L 130/49 L 96 12/16/19 00:00 46 L 126/53 L 99 12/15/19 23:50 45 L 129/50 L 97 12/15/19 23:40 48 L 132/53 L 97 12/15/19 23:31 46 L 96 12/15/19 23:30 48 L 133/54 L 95 12/15/19 23:20 47 L 126/49 L 94 12/15/19 23:11 47 L 92 12/15/19 23:10 47 L 126/49 L 92 12/15/19 23:00 47 L 124/48 L 89 L 12/15/19 22:51 48 L 19 93 12/15/19 22:50 47 L 141/56 H 96 12/15/19 22:40 48 L 117/46 L 88 L 12/15/19 22:30 49 L 123/44 L 85 L 12/15/19 22:20 52 L 149/53 H 90 12/15/19 22:10 52 L 142/52 H 93 12/15/19 22:01 55 L 91 12/15/19 22:00 52 L 126/51 L 100 12/15/19 21:50 49 L 121/50 L 89 L 12/15/19 21:40 50 L 131/49 L 88 L 12/15/19 21:31 51 L 88 L 12/15/19 21:30 52 L 138/53 L 90 I reviewed vital signs, labs and imaging Coding Level of Care Code Critical Care 1st 30-74 mins Diagnoses Pneumonia due to 2019 novel coronavirus U07.1; J12.89 Acute hypoxemic respiratory failure J96.01 Coronary artery disease I25.10 Endotracheally intubated Z97.8 Hypertensive urgency I16.0 Complicated UTI (urinary tract infection) N39.0 Time Spent (min) 43
--- NOTE | 2019-12-16 10:32 | XRay Report ---
XR chest 1V portable CLINICAL HISTORY: Abnormal chest x-ray. Follow-up study. COMPARISON STUDY: 12/14/2019 FINDINGS: There is a right internal jugular central venous catheter unchanged in position. There is a nasogastric tube which passes into the stomach. There is an endotracheal tube positioned 3.7 cm abov e the kiran. There are improving bilateral pulmonary airspace opacities.[ IMPRESSION: Improving bilateral pulmonary airspace opacities. ACT 112: Negative or not required by law. Electronically signed by: Stanley Stuart M.D. 12/16/2019 10:30 AM
[2019-12-16 10:38] LABS: iSTAT Allen Test Pass; iSTAT Art Bld Gas pCO2 Correct 34 mmHg (35-46); iSTAT Art Bld Gas pH Corrected 7.404 (7.35-7.45); iSTAT Arterial Blood Gas HCO3 22 meg/L (19-24); iSTAT Arterial Blood Gas pCO2 36 mmHg (35-46); iSTAT Arterial Blood Gas pH 7.39 (7.35-7.45); iSTAT Arterial Blood Gas pO2 55 mmHg (80-95); iSTAT Arterial Blood Gas pO2 C 51; iSTAT Carbon Dioxide 23 mmol/L (24-31); iSTAT FiO2 60 %; iSTAT Hematocrit 29 % (37-47); iSTAT Hemoglobin 9.9 g/dl (12.0-16.0); iSTAT Potassium 3.5 mmol/L (3.3-5.0); iSTAT Site L Brachial; iSTAT Sodium 127 mmol/L (135-144)
--- NOTE | 2019-12-16 11:28 | Pharmacy Report ---
Pharmacy Glycemic Short Note 2 - Date of Service December 16, 2019 - Glycemic Short BSG Results (Last 24 hours): 12/15/19 12/15/19 12/15/19 11:31 13:35 14:26 Glucose 208 H POC Glucose 261 H 247 H 12/15/19 12/15/19 12/15/19 15:42 17:35 18:43 Glucose POC Glucose 217 H 238 H 207 H 12/15/19 12/15/19 12/15/19 20:09 21:15 22:07 Glucose POC Glucose 182 H 198 H 171 H 12/15/19 12/16/19 12/16/19 23:05 00:38 01:25 Glucose POC Glucose 165 H 183 H 191 H 12/16/19 12/16/19 12/16/19 02:22 03:07 04:08 Glucose POC Glucose 152 H 155 H 146 H 12/16/19 12/16/19 12/16/19 05:14 05:51 07:12 Glucose 140 H POC Glucose 143 H 162 H 12/16/19 12/16/19 08:58 10:55 Glucose POC Glucose 160 H 126 H OUTPATIENT ANTIDIABETIC REGIMEN: * Metformin 500mg BID? (from external med history) * A1C: 8.4% 12/15/19 ASSESSMENT: 12/15 * BSGs well controlled at this time. * IV insulin drip continues @4.8units/hr. She is also receiving Lantus 10 units SQ BID * She remains intubated however is tolerating SAT/SBT and will likely be extubated today * Tubes feeds are on hold. Norepi was off at 0700, however now running at 0.02mcg/kg/min. * Dexamethasone IV continues (at least Day #3) * Given substantial IV insulin requirements, would opt to continue the drip at this time and reassess needs later today following extubation. Will increase basal doses at this time however. PLAN FOR INPATIENT GLYCEMIC CONTROL: * Hold outpatient oral diabetes medications (metformin) * Continue IV insulin infusion, goal range 140-180 * Infusion may be monitored and adjusted Q 2 hrs if BSGs and infusion rate stable * Basal insulin -increase * Lantus 20 units SQ BID (to help facilitate eventual drip transition) * Bolus insulin * NovoLog per scale ACHS as per insulin infusion calculator PLAN FOR DISCHARGE: * TBD
[2019-12-16] MEDS ORDERED: INSULIN GLARGINE SOLOSTAR 100 UNITS/ML 3 ML PEN SC ONE (12:00)
--- NOTE | 2019-12-16 16:20 | Hospitalist Progress Note ---
Date of Service December 16, 2019 Assessment & Plan (1) Pneumonia due to 2019 novel coronavirus: Admitted to [facility] in [place] on 12/11/2019 per records. Acute hypoxic respiratory failure / respiratory status worsened while there, and she was intubated on 12/14/19 prior to Tx to [facility] ICU. s/p successful extubation today to NC O2. She is at least day #3 of IV decadron here - uncertain if she received steroids at outside hospital; will need to inquire with [facility]. s/p convalescent plasma 12/15/19. Day #2 of 5 of IV remdesivir. Check Cr, AST, ALT in am. Patient with thick, yellow sputum. Sent sputum cx to r/o concomitant bacterial superinfection. Would benefit from bronchodilators and mucinex. (2) Acute hypoxemic respiratory failure: 2nd to COVID-19 pneumonia. CXR from this AM reviewed. s/p intubation on 12/13. s/p extubation today, 12/15. Appreciate corporate strategy associate support and assistance. (3) Severe sepsis: 2nd to COVID-19 pneumonia and e.coli UTI. Cont supportive care for COVID-19. Cont aztreonam for e.coli UTI. Urine culture from [facility] was obtained - e.coli resistant to amp, amp/sulbactam, cipro, levo, and tmp/sulfa. Blood cultures from [facility] negative (and final). Send sputum culture - thick, yellow sputum post-extubation. (4) Coronary artery disease: Reported history of coronary artery disease with stenting. Cont asa. Cont plavix. Cont likely resume metoprolol tomorrow. (5) Diabetes: Cont insulin drip protocol as managed by pharmacy glycemic team. Appreciate their assistance. Glycemic control excellent. (6) E. coli UTI: See above. Continue aztreonam. This is at least day #5 of abx. Plan 7 days. (7) History of CVA (cerebrovascular accident): Noted. Cont asa/plavix for secondary prevention. (8) Acute tubular necrosis: 2nd to sepsis/COVID-19. Improved. Peak 1.5; now 1. BMP am. (9) MICHAEL (acute kidney injury): 2nd ATN. Improving. BMP am. (10) Hyponatremia: IMPROVED. Was 120 at admission; now 127. Apparently was diuresed at [facility] may have worsened w/ such. Check TSH in am to be complete. Cortisol level would be inaccurate due to steroid use. (11) Hypothermia: resolved. likely was due to sepsis. (12) DVT prophylaxis: Lovenox SC Now that renal function is better would increase to 40mg BID due to high risk of VTE with COVID-19 updated daughter, Doreen, at [phone] - 12/14 and 12/15. daughter reports that patient has a "mold closer" with whom she lives. recommended that pt's mold closer be tested for COVID-19 gia. he apparently tried to get tested but because of lack of symptoms he was denied a test? I recommended that the pt's mold closer quarantine at home for 2 weeks. Doreen also mentioned she has 2 brothers - recommended they be tested as well. Admission and Anticipated Discharge Date Admission Date: December 14, 2019 Subjective patient was successfully extubated today. when I saw patient she was on 4 L NC satting about 88%. she had severe cough and she was using a yankauer suction device getting thick yellow secretions. I increased her O2 to 5 L and her O2 sats darnell to about 92/93%. she was quite tearful during my visit. she was also quite tired - fell asleep multiple times. she did not realize she was in [place]. she could not give me a review of systems. Review of Systems Review of Systems: Unobtainable due to cognitive status Physical Exam Constitutional: + ill appearing, + altered mental status and + frail appearing; no acute distress coughing ENMT: Mouth: + dry oral mucous membranes Respiratory: + cough Auscultation: + crackles (b/l bases ); no wheezes Cardiovascular: Rate/Rhythm: regular rate and regular rhythm Heart Sounds: normal S1 and normal S2; no murmur Vessels: posterior tibial pulses present and dorsalis pedis pulses present; no JVD Extremities: + edema (trace b/l -- extremities very cool to touch ) Gastrointestinal (Abdomen): normal bowel sounds, soft, nontender, no hepatosplenomegaly Skin: + pallor Psychiatric: Orientation: oriented to person and oriented to place; + not alert and + not oriented to time Results & Data Results & Data ([facility]) Vital Signs (Past 12 Hours) Vital Signs Temp Pulse Pulse Resp BP BP Pulse Ox 12/16/19 15:54 36.6 C 85 16 143/76 H 95 12/16/19 15:00 83 20 154/83 H 90 12/16/19 14:00 36.6 C 85 20 139/73 92 12/16/19 13:00 91 H 19 147/61 H 98 12/16/19 12:30 82 19 147/61 H 97 12/16/19 11:30 36.0 C L 82 19 169/77 H 95 12/16/19 11:00 86 20 187/76 H 97 12/16/19 10:30 67 12 161/59 H 97 12/16/19 10:23 64 16 98 12/16/19 10:00 55 L 18 153/53 H 93 12/16/19 09:41 59 L 18 118/62 96 12/16/19 09:30 50 L 22 121/48 L 93 12/16/19 09:11 50 L 18 122/45 L 93 12/16/19 09:00 51 L 18 131/51 L 93 12/16/19 08:41 35.8 C L 54 L 18 174/62 H 100 12/16/19 08:31 49 L 18 177/64 H 98 12/16/19 08:30 49 L 20 177/64 H 96 12/16/19 08:22 48 L 20 157/54 H 97 12/16/19 08:12 48 L 19 90 12/16/19 08:11 46 L 20 98/42 L 91 12/16/19 08:00 48 L 20 104/40 L 90 12/16/19 07:51 49 L 18 101/40 L 90 12/16/19 07:30 36.2 C L 52 L 20 109/42 L 90 12/16/19 07:21 55 L 18 125/46 L 97 12/16/19 07:12 53 L 20 144/49 H 94 12/16/19 07:00 45 L 18 137/53 L 94 Laboratory Results Laboratory Results - last 24 hr 12/15/19 12/15/19 12/16/19 22:07 23:05 00:38 WBC RBC Hgb POC Hgb Hct POC Hct MCV MCH MCHC RDW Std Deviation RDW Coeff of Vargas Plt Count MPV Immature Gran % (Auto) Neut % (Auto) Lymph % (Auto) Haskell % (Auto) Eos % (Auto) Baso % (Auto) Neut # (Auto) Lymph # (Auto) Haskell # (Auto) Eos # (Auto) Baso # (Auto) Immature Gran # (Auto) Sample Site POC pH POC pCO2 POC pO2 POC HCO3 POC Total CO2 POC Base Excess ABG pH (Temp Correct) ABG pCO2 (Temp Corrct POC ABG pO2 at Pt Temp POC ABG O2 Sat Maximino Test O2 Delivery Device POC O2 Rate Minute Ventilation POC FiO2 Tidal Volume PEEP POC Sodium Sodium POC Potassium Potassium Chloride Carbon Dioxide Anion Gap BUN Creatinine Est Cr Clr Drug Dosing Est GFR ( Amer) Est GFR (Non-Af Amer) BUN/Creatinine Ratio Glucose POC Glucose 171 H 165 H 183 H Lactate Calcium Phosphorus Magnesium 12/16/19 12/16/19 12/16/19 01:25 02:22 03:07 WBC RBC Hgb POC Hgb Hct POC Hct MCV MCH MCHC RDW Std Deviation RDW Coeff of Vargas Plt Count MPV Immature Gran % (Auto) Neut % (Auto) Lymph % (Auto) Haskell % (Auto) Eos % (Auto) Baso % (Auto) Neut # (Auto) Lymph # (Auto) Haskell # (Auto) Eos # (Auto) Baso # (Auto) Immature Gran # (Auto) Sample Site POC pH POC pCO2 POC pO2 POC HCO3 POC Total CO2 POC Base Excess ABG pH (Temp Correct) ABG pCO2 (Temp Corrct POC ABG pO2 at Pt Temp POC ABG O2 Sat Maximino Test O2 Delivery Device POC O2 Rate Minute Ventilation POC FiO2 Tidal Volume PEEP POC Sodium Sodium POC Potassium Potassium Chloride Carbon Dioxide Anion Gap BUN Creatinine Est Cr Clr Drug Dosing Est GFR ( Amer) Est GFR (Non-Af Amer) BUN/Creatinine Ratio Glucose POC Glucose 191 H 152 H 155 H Lactate Calcium Phosphorus Magnesium 12/16/19 12/16/19 12/16/19 04:08 05:14 05:51 WBC 13.26 H RBC 3.50 L Hgb 10.1 L POC Hgb Hct 28.3 L POC Hct MCV 80.9 MCH 28.9 MCHC 35.7 RDW Std Deviation 38.6 RDW Coeff of Vargas 13.0 Plt Count 268 MPV 10.1 Immature Gran % (Auto) 0.5 Neut % (Auto) 84.3 Lymph % (Auto) 8.1 Haskell % (Auto) 7.0 Eos % (Auto) 0.0 Baso % (Auto) 0.1 Neut # (Auto) 11.18 H Lymph # (Auto) 1.07 L Haskell # (Auto) 0.93 H Eos # (Auto) 0.00 Baso # (Auto) 0.01 Immature Gran # (Auto) 0.07 H Sample Site POC pH POC pCO2 POC pO2 POC HCO3 POC Total CO2 POC Base Excess ABG pH (Temp Correct) ABG pCO2 (Temp Corrct POC ABG pO2 at Pt Temp POC ABG O2 Sat Maximino Test O2 Delivery Device POC O2 Rate Minute Ventilation POC FiO2 Tidal Volume PEEP POC Sodium Sodium POC Potassium Potassium Chloride Carbon Dioxide Anion Gap BUN Creatinine Est Cr Clr Drug Dosing Est GFR ( Amer) Est GFR (Non-Af Amer) BUN/Creatinine Ratio Glucose POC Glucose 146 H 143 H Lactate Calcium Phosphorus Magnesium 12/16/19 12/16/19 12/16/19 05:51 05:51 07:12 WBC RBC Hgb POC Hgb Hct POC Hct MCV MCH MCHC RDW Std Deviation RDW Coeff of Vargas Plt Count MPV Immature Gran % (Auto) Neut % (Auto) Lymph % (Auto) Haskell % (Auto) Eos % (Auto) Baso % (Auto) Neut # (Auto) Lymph # (Auto) Haskell # (Auto) Eos # (Auto) Baso # (Auto) Immature Gran # (Auto) Sample Site POC pH POC pCO2 POC pO2 POC HCO3 POC Total CO2 POC Base Excess ABG pH (Temp Correct) ABG pCO2 (Temp Corrct POC ABG pO2 at Pt Temp POC ABG O2 Sat Maximino Test O2 Delivery Device POC O2 Rate Minute Ventilation POC FiO2 Tidal Volume PEEP POC Sodium Sodium 127 L POC Potassium Potassium 3.5 Chloride 95 L Carbon Dioxide 25 Anion Gap 7.0 BUN 38 H Creatinine 1.04 Est Cr Clr Drug Dosing 42.6 Est GFR ( Amer) 58.4 Est GFR (Non-Af Amer) 50.3 BUN/Creatinine Ratio 36.5 H Glucose 140 H POC Glucose 162 H Lactate 1.6 Calcium 9.4 Phosphorus 3.6 Magnesium 2.2 12/16/19 12/16/19 12/16/19 07:36 08:58 10:55 WBC RBC Hgb POC Hgb 9.9 L Hct POC Hct 29 L MCV MCH MCHC RDW Std Deviation RDW Coeff of Vargas Plt Count MPV Immature Gran % (Auto) Neut % (Auto) Lymph % (Auto) Haskell % (Auto) Eos % (Auto) Baso % (Auto) Neut # (Auto) Lymph # (Auto) Haskell # (Auto) Eos # (Auto) Baso # (Auto) Immature Gran # (Auto) Sample Site L Brachial POC pH 7.39 POC pCO2 36 POC pO2 55 L POC HCO3 22 POC Total CO2 23 L POC Base Excess -3.0 ABG pH (Temp Correct) 7.404 ABG pCO2 (Temp Corrct 34 L POC ABG pO2 at Pt Temp 51 POC ABG O2 Sat 88.0 L Maximino Test Pass O2 Delivery Device Ventilator POC O2 Rate 18 Minute Ventilation 6 POC FiO2 60 Tidal Volume 350 PEEP 8 POC Sodium 127 L Sodium POC Potassium 3.5 Potassium Chloride Carbon Dioxide Anion Gap BUN Creatinine Est Cr Clr Drug Dosing Est GFR ( Amer) Est GFR (Non-Af Amer) BUN/Creatinine Ratio Glucose POC Glucose 160 H 126 H Lactate Calcium Phosphorus Magnesium 12/16/19 12/16/19 12/16/19 11:37 11:58 13:05 WBC RBC Hgb POC Hgb Hct POC Hct MCV MCH MCHC RDW Std Deviation RDW Coeff of Vargas Plt Count MPV Immature Gran % (Auto) Neut % (Auto) Lymph % (Auto) Haskell % (Auto) Eos % (Auto) Baso % (Auto) Neut # (Auto) Lymph # (Auto) Haskell # (Auto) Eos # (Auto) Baso # (Auto) Immature Gran # (Auto) Sample Site POC pH POC pCO2 POC pO2 POC HCO3 POC Total CO2 POC Base Excess ABG pH (Temp Correct) ABG pCO2 (Temp Corrct POC ABG pO2 at Pt Temp POC ABG O2 Sat Maximino Test O2 Delivery Device POC O2 Rate Minute Ventilation POC FiO2 Tidal Volume PEEP POC Sodium Sodium POC Potassium Potassium Chloride Carbon Dioxide Anion Gap BUN Creatinine Est Cr Clr Drug Dosing Est GFR ( Amer) Est GFR (Non-Af Amer) BUN/Creatinine Ratio Glucose POC Glucose 112 H 115 H 116 H Lactate Calcium Phosphorus Magnesium 12/16/19 12/16/19 12/16/19 14:01 15:01 16:12 WBC RBC Hgb POC Hgb Hct POC Hct MCV MCH MCHC RDW Std Deviation RDW Coeff of Vargas Plt Count MPV Immature Gran % (Auto) Neut % (Auto) Lymph % (Auto) Haskell % (Auto) Eos % (Auto) Baso % (Auto) Neut # (Auto) Lymph # (Auto) Haskell # (Auto) Eos # (Auto) Baso # (Auto) Immature Gran # (Auto) Sample Site POC pH POC pCO2 POC pO2 POC HCO3 POC Total CO2 POC Base Excess ABG pH (Temp Correct) ABG pCO2 (Temp Corrct POC ABG pO2 at Pt Temp POC ABG O2 Sat Maximino Test O2 Delivery Device POC O2 Rate Minute Ventilation POC FiO2 Tidal Volume PEEP POC Sodium Sodium POC Potassium Potassium Chloride Carbon Dioxide Anion Gap BUN Creatinine Est Cr Clr Drug Dosing Est GFR ( Amer) Est GFR (Non-Af Amer) BUN/Creatinine Ratio Glucose POC Glucose 108 H 107 H 113 H Lactate Calcium Phosphorus Magnesium 12/16/19 19:34 WBC RBC Hgb POC Hgb Hct POC Hct MCV MCH MCHC RDW Std Deviation RDW Coeff of Vargas Plt Count MPV Immature Gran % (Auto) Neut % (Auto) Lymph % (Auto) Haskell % (Auto) Eos % (Auto) Baso % (Auto) Neut # (Auto) Lymph # (Auto) Haskell # (Auto) Eos # (Auto) Baso # (Auto) Immature Gran # (Auto) Sample Site POC pH POC pCO2 POC pO2 POC HCO3 POC Total CO2 POC Base Excess ABG pH (Temp Correct) ABG pCO2 (Temp Corrct POC ABG pO2 at Pt Temp POC ABG O2 Sat Maximino Test O2 Delivery Device POC O2 Rate Minute Ventilation POC FiO2 Tidal Volume PEEP POC Sodium Sodium POC Potassium Potassium Chloride Carbon Dioxide Anion Gap BUN Creatinine Est Cr Clr Drug Dosing Est GFR ( Amer) Est GFR (Non-Af Amer) BUN/Creatinine Ratio Glucose POC Glucose 188 H Lactate Calcium Phosphorus Magnesium PG Care Time/CCT Total # of Minutes Spent Total Time Spent with Patient: Total time spent is greater than 50% in coordination of care (as documented) at patient's floor/unit and/or counseling patient: Coding Level of Care Code 42662 Subseq Hosp Care Lvl 3 Diagnoses Pneumonia due to 2019 novel coronavirus U07.1; J12.89 Acute hypoxemic respiratory failure J96.01 Severe sepsis A41.9; R65.20 Coronary artery disease I25.10 Diabetes E11.9 E. coli UTI N39.0; B96.20 History of CVA (cerebrovascular accident) Z86.73 Acute tubular necrosis N17.0 MICHAEL (acute kidney injury) N17.9 Hyponatremia E87.1 Hypothermia T68.XXXA DVT prophylaxis Z29.9
[2019-12-16] MEDS ORDERED: ONDANSETRON INJ 2 MG/ML 2 ML VIAL IV PRN (19:22)
[2019-12-16] MEDS ORDERED: ONDANSETRON INJ 2 MG/ML 2 ML VIAL ONE (19:24)
[2019-12-16] MEDS ORDERED: IPRATROPIUM BROMIDE/ALBUTEROL respimat INH INH SCH (22:00)
[2019-12-16] MEDS ORDERED: ACETAMINOPHEN 1,000 MG/100 ML VIAL IV STA (22:39)
[2019-12-16] MEDS: IPRATROPIUM BROMIDE HFA INHALER INH SCH (23:49)
[2019-12-16] MEDS: ALBUTEROL HFA 8 GM INHALER INH SCH (23:49)
[2019-12-17] MEDS: INSULIN ASPART 100 UNITS/ML 3 ML PEN SC SCH ×6 (00:28→20:32)
[2019-12-17] MEDS: AZTREONAM 1,000 MG in DEXTROSE 5% 100 ML IV SCH ×3 (04:15→20:31)
[2019-12-17 06:46] LABS: Hematocrit (blood only) 27.7 % (37-47); Hemoglobin 9.5 g/dL (12.0-16.0); Mean Corpuscular Hemoglobin 28.4 pg (25-34); Mean Corpuscular Hgb Conc 34.3 g/dL (32-36); Mean Corpuscular Volume 82.7 fL (80-100); Mean Platelet Volume 10.7 fL (7.4-10.4); Platelet Count 225 K/uL (130-400); RDW Coefficient of Variation 13.3 % (11.5-14.5); RDW Standard Deviation 40.4 fL (36.4-46.3); Red Blood Count 3.35 M/uL (4.2-5.4); White Blood Count 7.84 K/uL (4.8-10.8)
[2019-12-17 07:19] LABS: BUN Creatinine Ratio 34.9 (10-20); Calcium 8.7 mg/dl (8.5-10.1); Creatinine Clr Calc Pharmacy 36.5 ml/min; Est GFR (African American) 48.6; Est GFR (Non-African American) 41.9; Magnesium 2.3 mg/dl (1.8-2.4)
[2019-12-17 07:30] LABS: Phosphorus 3.4 mg/dl (2.5-4.9); Thyroid Stimulating Hormone 0.827 uIu/ml (0.300-4.500)
[2019-12-17] MEDS: IPRATROPIUM BROMIDE HFA INHALER INH SCH ×4 (07:42→19:13)
[2019-12-17] MEDS: ALBUTEROL HFA 8 GM INHALER INH SCH ×4 (07:42→19:13)
[2019-12-17] MEDS: FAMOTIDINE 20 MG in SYRINGE 3 ML IV SCH (07:53)
[2019-12-17] MEDS: REMDESIVIR 100mg: Days 2-5 IV SCH (07:53)
[2019-12-17] MEDS: ENOXAPARIN INJ 40 MG/0.4 ML SYR SQ SCH ×2 (07:53→20:33)
[2019-12-17] MEDS: INSULIN GLARGINE SOLOSTAR 100 UNITS/ML 3 ML PEN SC SCH ×2 (08:14→20:31)
[2019-12-17] MEDS: DEXAMETHASONE SOD PHOSPHATE 6 MG in SYRINGE 0 ML IV SCH (08:53)
[2019-12-17] MEDS: NSS 30mL Flush, Days 1-5 IV SCH (08:54)
[2019-12-17] MEDS: guaiFENesin 600 MG TABCR PO SCH ×2 (10:10→20:33)
[2019-12-17] MEDS: ASPIRIN 81 MG CHEW NG SCH (11:03)
[2019-12-17] MEDS: CLOPIDOGREL BISULFATE 75 MG TAB PEG SCH (11:03)
--- NOTE | 2019-12-17 13:19 | Hospitalist Progress Note ---
Date of Service December 17, 2019 Assessment & Plan (1) Pneumonia due to 2019 novel coronavirus: Improving albeit slowly. Admitted to [facility] in [place] on 12/11/2019. Acute hypoxic respiratory failure / respiratory status worsened while there, and she was intubated on 12/14/19 prior to Tx to [facility] ICU. s/p extubation on 12/16/19. She is at least day #4 of IV decadron here - uncertain if she received steroids at outside hospital; attempted to call pharmacy at [facility] re: steroids but could not connect; will attempt to call them tomorrow. s/p convalescent plasma 12/15/19. Day #3 of 5 of IV remdesivir. Cr, AST, ALT remain stable; recheck in am. Patient with ongoing thick, yellow sputum. Sputum cx sent/pending. Remains on aztreonam for UTI and to cover for bacterial pneumonia/superinfection. Cont bronchodilators and mucinex. (2) Acute hypoxemic respiratory failure: 2nd to COVID-19 pneumonia. s/p intubation on 12/13. s/p extubation on 12/15. Appreciate manager assurance support and assistance. Downgrade from ICU status to PCU status. (3) Severe sepsis: 2nd to COVID-19 pneumonia and e.coli UTI. Cont supportive care for COVID-19. Cont aztreonam for e.coli UTI. Aztreonam also will cover for any bacterial pneumonia. Urine culture from [facility] was obtained - e.coli resistant to amp, amp/sulbactam, cipro, levo, and tmp/sulfa. Blood cultures from [facility] negative. Sputum culture pending. (4) Coronary artery disease: History of coronary artery disease with stenting. Cont asa. Cont plavix. Resume metoprolol today. (5) Diabetes: Improved. Insulin drip off. SC basal-bolus regimen in place. Appreciate pharmacy glycemic consult and assistance. (6) E. coli UTI: See above. Continue aztreonam. This is at least day #6 of abx. Plan 7 days. (7) History of CVA (cerebrovascular accident): Noted. Cont asa/plavix for secondary prevention. (8) Acute tubular necrosis: 2nd to sepsis/COVID-19. Improved. Peak 1.5; now 1.2. BMP am. (9) MICHAEL (acute kidney injury): 2nd ATN. Improving. BMP am. (10) Hyponatremia: IMPROVED. Was 120 at admission; now 129. TSH wnl. (11) DVT prophylaxis: Lovenox SC 40mg BID updated daughter, Doreen, at [phone] - 12/14, 12/15, 12/16. appreciate PT, OT, speech evaluations. Admission and Anticipated Discharge Date Admission Date: December 14, 2019 Subjective patient awake during my visit but extremely weak. still coughing up yellow sputum, thick/tenacious, and copious. using suction catheter to remove the secretions. became tearful during the exam. she asked about her daughter. she does know that she is in the hospital in [place]. knew the year as well. cleared by speech for pureed diet. Review of Systems Constitutional: + fatigue, + malaise and + weakness Respiratory: + cough, + chest congestion, + dyspnea and + sputum production Cardiovascular: no chest pain Gastrointestinal: no abdominal pain, no nausea and no vomiting Physical Exam Constitutional: + ill appearing and + frail appearing; no acute distress and no altered mental status ENMT: external ear and nose normal, oropharynx normal Respiratory: + cough Auscultation: + crackles (b/l bases ); no wheezes Cardiovascular: Rate/Rhythm: regular rate and regular rhythm Heart Sounds: normal S1 and normal S2; no murmur Vessels: posterior tibial pulses present and dorsalis pedis pulses present; no JVD Extremities: + edema Gastrointestinal (Abdomen): normal bowel sounds, soft, nontender, no hepatosplenomegaly Skin: + pallor Psychiatric: Orientation: alert, oriented to person, oriented to place and oriented to time Results & Data Results & Data ([facility]) Vital Signs (Past 12 Hours) Vital Signs Temp Pulse Pulse Resp BP Pulse Ox 12/17/19 12:35 37.5 C 82 15 143/62 H 98 12/17/19 11:35 37.6 C H 90 21 152/85 H 91 12/17/19 11:24 82 18 94 12/17/19 10:35 37.6 C H 74 16 156/68 H 98 12/17/19 09:35 37.3 C 81 24 141/60 H 95 12/17/19 08:35 37.2 C 98 H 18 130/73 94 12/17/19 07:43 81 20 96 12/17/19 07:35 37.3 C 73 20 144/59 H 95 12/17/19 06:35 37.2 C 74 15 150/55 H 97 12/17/19 05:35 37.2 C 79 19 139/61 97 12/17/19 04:35 37.3 C 77 16 134/84 98 12/17/19 03:35 37.4 C 72 16 131/72 97 12/17/19 02:35 37.6 C H 73 21 127/57 L 97 12/17/19 01:35 37.6 C H 75 18 125/59 L 97 Laboratory Results Laboratory Results - last 24 hr 12/16/19 12/16/19 12/16/19 14:01 15:01 16:12 WBC RBC Hgb Hct MCV MCH MCHC RDW Std Deviation RDW Coeff of Vargas Plt Count MPV Sodium Potassium Chloride Carbon Dioxide Anion Gap BUN Creatinine Est Cr Clr Drug Dosing Est GFR ( Amer) Est GFR (Non-Af Amer) BUN/Creatinine Ratio Glucose POC Glucose 108 H 107 H 113 H Calcium Phosphorus Magnesium AST ALT TSH 12/16/19 12/17/19 12/17/19 19:34 00:25 04:10 WBC RBC Hgb Hct MCV MCH MCHC RDW Std Deviation RDW Coeff of Vargas Plt Count MPV Sodium Potassium Chloride Carbon Dioxide Anion Gap BUN Creatinine Est Cr Clr Drug Dosing Est GFR ( Amer) Est GFR (Non-Af Amer) BUN/Creatinine Ratio Glucose POC Glucose 188 H 170 H 163 H Calcium Phosphorus Magnesium AST ALT TSH 12/17/19 12/17/19 12/17/19 05:53 05:53 07:59 WBC 7.84 RBC 3.35 L Hgb 9.5 L Hct 27.7 L MCV 82.7 MCH 28.4 MCHC 34.3 RDW Std Deviation 40.4 RDW Coeff of Vargas 13.3 Plt Count 225 MPV 10.7 H Sodium 129 L Potassium 4.0 Chloride 97 L Carbon Dioxide 25 Anion Gap 7.0 BUN 42 H Creatinine 1.21 H Est Cr Clr Drug Dosing 36.5 Est GFR ( Amer) 48.6 Est GFR (Non-Af Amer) 41.9 BUN/Creatinine Ratio 34.9 H Glucose 155 H POC Glucose 175 H Calcium 8.7 Phosphorus 3.4 Magnesium 2.3 AST 13 L ALT 15 TSH 0.827 12/17/19 11:33 WBC RBC Hgb Hct MCV MCH MCHC RDW Std Deviation RDW Coeff of Vargas Plt Count MPV Sodium Potassium Chloride Carbon Dioxide Anion Gap BUN Creatinine Est Cr Clr Drug Dosing Est GFR ( Amer) Est GFR (Non-Af Amer) BUN/Creatinine Ratio Glucose POC Glucose 149 H Calcium Phosphorus Magnesium AST ALT TSH PG Care Time/CCT Total # of Minutes Spent Total Time Spent with Patient: Total time spent is greater than 50% in coordination of care (as documented) at patient's floor/unit and/or counseling patient: Coding Level of Care Code 90625 Subseq Hosp Care Lvl 3 Diagnoses Pneumonia due to 2019 novel coronavirus U07.1; J12.89 Acute hypoxemic respiratory failure J96.01 Severe sepsis A41.9; R65.20 Coronary artery disease I25.10 Diabetes E11.9 E. coli UTI N39.0; B96.20 History of CVA (cerebrovascular accident) Z86.73 Acute tubular necrosis N17.0 MICHAEL (acute kidney injury) N17.9 Hyponatremia E87.1 DVT prophylaxis Z29.9
[2019-12-17] MEDS: METOPROLOL TARTRATE 25 MG TAB PO SCH (23:00)
[2019-12-18] MEDS: AZTREONAM 1,000 MG in DEXTROSE 5% 100 ML IV SCH ×3 (04:36→19:49)
[2019-12-18 07:09] LABS: D Dimer 980 ug/L FEU (0-500)
[2019-12-18] MEDS: IPRATROPIUM BROMIDE HFA INHALER INH SCH ×4 (07:27→19:23)
[2019-12-18] MEDS: ALBUTEROL HFA 8 GM INHALER INH SCH ×4 (07:27→19:23)
[2019-12-18 07:36] LABS: BUN Creatinine Ratio 35.8 (10-20); Calcium 8.9 mg/dl (8.5-10.1); Creatinine Clr Calc Pharmacy 50.2 ml/min; Est GFR (African American) 71.4; Est GFR (Non-African American) 61.6; Potassium 4.1 mmol/L (3.5-5.1)
[2019-12-18] MEDS: REMDESIVIR 100mg: Days 2-5 IV SCH (08:17)
[2019-12-18] MEDS: CLOPIDOGREL BISULFATE 75 MG TAB PO SCH (08:18)
[2019-12-18] MEDS: DEXAMETHASONE SOD PHOSPHATE 6 MG in SYRINGE 0 ML IV SCH (08:18)
[2019-12-18] MEDS: METOPROLOL TARTRATE 25 MG TAB PO SCH (08:18)
[2019-12-18] MEDS: ENOXAPARIN INJ 40 MG/0.4 ML SYR SQ SCH ×2 (08:19→19:49)
[2019-12-18] MEDS: guaiFENesin 600 MG TABCR PO SCH ×2 (08:19→19:50)
[2019-12-18] MEDS: ASPIRIN 81 MG ECTAB PO SCH (08:20)
[2019-12-18] MEDS: INSULIN GLARGINE SOLOSTAR 100 UNITS/ML 3 ML PEN SC SCH ×2 (08:32→20:07)
[2019-12-18] MEDS: INSULIN ASPART 100 UNITS/ML 3 ML PEN SC SCH ×4 (08:33→20:06)
[2019-12-18] MEDS: FAMOTIDINE 20 MG in SYRINGE 3 ML IV SCH (08:42)
[2019-12-18] MEDS ORDERED: ASPIRIN 81 MG CHEW PO SCH (09:00)
[2019-12-18] MEDS: NSS 30mL Flush, Days 1-5 IV SCH (09:52)
[2019-12-18] MEDS: METOPROLOL TARTRATE 50 MG TAB PO SCH ×2 (13:12→19:50)
[2019-12-18] MEDS ORDERED: ISOSORBIDE MONO EXTENDED REL 30 MG TABCR PO ONE (18:24)
--- NOTE | 2019-12-18 23:05 | Hospitalist Progress Note ---
Date of Service December 18, 2019 Assessment & Plan (1) Pneumonia due to 2019 novel coronavirus: Slowly improving. Admitted to [facility] in [place] on 12/11/2019. Acute hypoxic respiratory failure / respiratory status worsened while there, and she was intubated on 12/14/19 prior to Tx to [facility] ICU. s/p extubation on 12/16/19. By report received 1 dose of remdesivir at [facility] and 2 doses of IV steroids. She is at least day #7 of IV decadron between [facility] and [facility]. Plan 10-day course. s/p convalescent plasma 12/15/19. Day #4 of 5 of IV remdesivir. Cr, AST, ALT remain stable; recheck in am. Patient with ongoing thick, yellow sputum. Sputum cx thus far negative. Remains on aztreonam for UTI and to cover for bacterial pneumonia/superinfection. Day #5 of IV antibiotics at [facility]. Plan 7-days then stop. Cont bronchodilators and mucinex. (2) Acute hypoxemic respiratory failure: 2nd to COVID-19 pneumonia. s/p intubation on 12/13. s/p extubation on 12/15. Remains on NC O2 but weaning day-to-day. Cont pulmonary toilet. See above in "pneumonia due to...". (3) Severe sepsis: 2nd to COVID-19 pneumonia and e.coli UTI. Cont supportive care for COVID-19. Cont aztreonam for e.coli UTI. Aztreonam also will cover for any bacterial pneumonia although sputum cx thus far negative. Urine culture from [facility] was obtained - e.coli resistant to amp, amp/sulbactam, cipro, levo, and tmp/sulfa. Blood cultures from [facility] negative. Day #5 of aztreonam; plan 2 more days then stop. (4) Coronary artery disease: History of coronary artery disease with stenting. Cont asa. Cont plavix. Increase metoprolol to 50mg BID. Add back imdur 30mg daily. (5) Diabetes: Improved. Insulin drip off. SC basal-bolus regimen in place. Appreciate pharmacy glycemic consult and assistance. (6) E. coli UTI: See above. Continue aztreonam. This is at least day #5 (maybe 6, probably 5 though) of abx. Plan 7 days. (7) History of CVA (cerebrovascular accident): Cont asa/plavix for secondary prevention. Stroke left her with very mild right-sided weakness. (8) Acute tubular necrosis: 2nd to sepsis/COVID-19. Improved/resolved. Peak 1.5; now 0.88. BMP am. (9) MICHAEL (acute kidney injury): 2nd ATN. Resolved. BMP am. (10) Hyponatremia: IMPROVED. Was 120 at admission; now 131. TSH wnl. Repeat BMP am. (11) Essential (primary) hypertension: Increase metoprolol to 50mg BID. Add back imdur 30mg daily. Ideally should be on NIESHA or ARB due to DM history. (12) DVT prophylaxis: Lovenox SC 40mg BID updated daughter, Doreen, at [phone] - 12/14, 12/15, 12/16, 12/17. appreciate speech evaluation and recs. PT/OT evals requested. consider removing central line next 1-2 days if clinical status continues to improve. told her daughter that more than likely her mom will need rehab after discharge. Admission and Anticipated Discharge Date Admission Date: December 14, 2019 Subjective tele overnight wnl. staff report a little improvement in appetite. diet changed to minced/moist by speech. during my bedside visit she was more awake and alert than previous. speech more clear. oriented x 3. able to tell me she sees Dr Hankins in [place] for cardiology and that she takes imdur daily. continues with cough - sputum still present but better. denies chest pain or tightness. denies dyspnea. I asked her if she wanted to get OOB to chair - declined, saying "maybe tomorrow." Review of Systems Constitutional: + fatigue, + weakness and + anorexia; no fever, no chills and no body aches Respiratory: + cough; no hemoptysis Cardiovascular: no chest pain Gastrointestinal: no abdominal pain, no nausea and no vomiting Physical Exam Constitutional: + ill appearing and + frail appearing; no acute distress and no altered mental status ENMT: external ear and nose normal, oropharynx normal Respiratory: + cough Auscultation: + crackles (b/l bases - fine ); no wheezes Cardiovascular: Rate/Rhythm: regular rate and regular rhythm Heart Sounds: normal S1 and normal S2; no murmur Vessels: posterior tibial pulses present and dorsalis pedis pulses present; no JVD Extremities: + edema (trace ) Gastrointestinal (Abdomen): normal bowel sounds, soft, nontender, no hepatosplenomegaly Skin: ecchymoses over lower left jaw Psychiatric: Orientation: alert, oriented to person, oriented to place and oriented to time Results & Data Results & Data ([facility]) Vital Signs (Past 12 Hours) Vital Signs Temp Pulse Pulse Resp BP BP Pulse Ox 12/18/19 19:44 37.2 C 68 16 198/75 H 93 12/18/19 19:23 67 16 93 12/18/19 16:50 36.7 C 64 16 203/79 H 95 12/18/19 15:28 64 18 91 12/18/19 11:38 65 20 94 12/18/19 11:32 36.8 C 61 18 193/73 H 94 Laboratory Results Laboratory Results - last 24 hr 12/18/19 12/18/19 12/18/19 06:24 06:24 08:13 D-Dimer 980 H* Sodium 131 L Potassium 4.1 Chloride 100 Carbon Dioxide 26 Anion Gap 5.0 BUN 32 H Creatinine 0.88 D Est Cr Clr Drug Dosing 50.2 Est GFR ( Amer) 71.4 Est GFR (Non-Af Amer) 61.6 BUN/Creatinine Ratio 35.8 H Glucose 160 H POC Glucose 166 H Calcium 8.9 AST 11 L ALT 15 12/18/19 12/18/19 12/18/19 11:29 17:40 20:03 D-Dimer Sodium Potassium Chloride Carbon Dioxide Anion Gap BUN Creatinine Est Cr Clr Drug Dosing Est GFR ( Amer) Est GFR (Non-Af Amer) BUN/Creatinine Ratio Glucose POC Glucose 144 H 225 H 211 H Calcium AST ALT PG Care Time/CCT Total # of Minutes Spent Total Time Spent with Patient: Total time spent is greater than 50% in coordination of care (as documented) at patient's floor/unit and/or counseling patient: Coding Level of Care Code 98520 Subseq Hosp Care Lvl 3 Diagnoses Pneumonia due to 2019 novel coronavirus U07.1; J12.89 Acute hypoxemic respiratory failure J96.01 Severe sepsis A41.9; R65.20 Coronary artery disease I25.10 Diabetes E11.9 E. coli UTI N39.0; B96.20 History of CVA (cerebrovascular accident) Z86.73 Acute tubular necrosis N17.0 MICHAEL (acute kidney injury) N17.9 Hyponatremia E87.1 Essential (primary) hypertension I10 DVT prophylaxis Z29.9
[2019-12-19] MEDS: AZTREONAM 1,000 MG in DEXTROSE 5% 100 ML IV SCH ×2 (04:54→12:15)
[2019-12-19] MEDS: IPRATROPIUM BROMIDE HFA INHALER INH SCH ×4 (07:28→19:31)
[2019-12-19] MEDS: ALBUTEROL HFA 8 GM INHALER INH SCH ×4 (07:29→19:31)
[2019-12-19] MEDS: DEXAMETHASONE SOD PHOSPHATE 6 MG in SYRINGE 0 ML IV SCH (08:17)
[2019-12-19] MEDS: REMDESIVIR 100mg: Days 2-5 IV SCH (08:18)
[2019-12-19] MEDS: guaiFENesin 600 MG TABCR PO SCH ×2 (08:22→20:59)
[2019-12-19] MEDS: ASPIRIN 81 MG ECTAB PO SCH (08:22)
[2019-12-19] MEDS: ISOSORBIDE MONO EXTENDED REL 30 MG TABCR PO SCH (08:22)
[2019-12-19] MEDS: CLOPIDOGREL BISULFATE 75 MG TAB PO SCH (08:22)
[2019-12-19] MEDS: METOPROLOL TARTRATE 50 MG TAB PO SCH ×2 (08:23→20:59)
[2019-12-19] MEDS: ENOXAPARIN INJ 40 MG/0.4 ML SYR SQ SCH ×2 (08:23→20:58)
[2019-12-19] MEDS: FAMOTIDINE 20 MG TAB PO SCH ×2 (08:24→20:59)
[2019-12-19] MEDS: ADVANCED PROBIOTIC 1250 MG CAPSULE PO SCH (08:24)
[2019-12-19] MEDS: INSULIN ASPART 100 UNITS/ML 3 ML PEN SC SCH ×4 (08:26→21:18)
[2019-12-19] MEDS: INSULIN GLARGINE SOLOSTAR 100 UNITS/ML 3 ML PEN SC SCH ×2 (08:27→21:18)
[2019-12-19] MEDS: NSS 30mL Flush, Days 1-5 IV SCH (08:28)
--- NOTE | 2019-12-19 09:39 | Pharmacy Report ---
Pharmacy Glycemic Short Note 2 - Date of Service December 19, 2019 - Glycemic Short BSG Results (Last 24 hours): 12/18/19 12/18/19 12/18/19 11:29 17:40 20:03 POC Glucose 144 H 225 H 211 H 12/19/19 07:39 POC Glucose 140 H OUTPATIENT ANTIDIABETIC REGIMEN: * Metformin 500mg BID? (from external med history) * A1C: 8.4% 12/15/19 ASSESSMENT: 12/18 * Patient received total of 68 units of insulin yesterday, of which 45 were basal insulin * Fasting BSG slight improvement from day prior at 140 mg/dL - continue with basal scale * BSGs increasing throughout the day - tighten CR this AM / continues on dex 6 iv daily PLAN FOR INPATIENT GLYCEMIC CONTROL: * Hold outpatient oral diabetes medications (metformin) * Basal insulin * 15-25 units BID based upon BSG value / see emar for more details * Bolus insulin -tighten * NovoLog per scale ACHS * 110-140 / CF 18 and CR of 5 PLAN FOR DISCHARGE: * TBD
[2019-12-19 11:26] LABS: BUN Creatinine Ratio 35.4 (10-20); Calcium 8.6 mg/dl (8.5-10.1); Creatinine Clr Calc Pharmacy 45.9 ml/min; Est GFR (African American) 64.3; Est GFR (Non-African American) 55.5; Potassium 4.3 mmol/L (3.5-5.1)
--- NOTE | 2019-12-19 15:21 | Hospitalist Progress Note ---
Date of Service December 19, 2019 Assessment & Plan (1) Pneumonia due to 2019 novel coronavirus: Slowly improving. Admitted to [facility] in [place] on 12/11/2019. Acute hypoxic respiratory failure / respiratory status worsened while there, and she was intubated on 12/14/19 prior to Tx to [facility] ICU. - S/p extubation on 12/16/19. She is at least day #7 of IV Decadron between [facility] and [facility]. Plan 10-day course. - S/p convalescent plasma 12/15/19. Day #5 of 5 of IV remdesivir. - Remains on aztreonam for UTI and to cover for bacterial pneumonia/superinfection. - Day #6 of IV antibiotics at [facility]. (End date: 12/20/2019) - Cont bronchodilators and Mucinex. (2) Acute hypoxemic respiratory failure: 2nd to COVID-19 pneumonia. s/p intubation on 12/13. s/p extubation on 12/15. Remains on NC O2 but weaning day-to-day. Cont pulmonary toilet. (3) Severe sepsis: 2nd to COVID-19 pneumonia and E.coli UTI. Cont supportive care for COVID-19. Cont aztreonam for e.coli UTI. Aztreonam also will cover for any bacterial pneumonia although sputum cx thus far negative. Urine culture from [facility] was obtained - e.coli resistant to amp, amp/sulbactam, cipro, levo, and tmp/sulfa. Blood cultures from [facility] negative. Day #6 of aztreonam; plan 1 more day then stop. (4) Coronary artery disease: History of coronary artery disease with stenting. - Cont ASA/Plavix. - Continue metoprolol tartrate PO 50mg BID & Imdur 30mg daily. (5) Diabetes: A1c was 8.4% this admission. Was on insulin drip; now off. - SC basal-bolus regimen in place. - Appreciate pharmacy glycemic consult and assistance. (6) E. coli UTI: See above. - Continue aztreonam. (7) History of CVA (cerebrovascular accident): Stroke left her with very mild right-sided weakness. - Cont ASA/Plavix for secondary prevention. (8) Acute tubular necrosis: 2nd to sepsis/COVID-19. Improved/resolved. Peak 1.5; now 0.9. (9) Hyponatremia: IMPROVED. Was 120 at admission; now 131. TSH wnl. (10) Essential (primary) hypertension: BP is 175/70 today. - Continue metoprolol & Imdur - Ideally should be on NIESHA or ARB due to DM history. Will add if needed. (11) DVT prophylaxis: Lovenox SC 40mg BID Doreen (daughter) - [phone] Admission and Anticipated Discharge Date Admission Date: December 14, 2019 Subjective Doing well. No major complaints today. Reports no fevers/chills, chest pain, shortness of breath, abdominal pain, nausea, or vomiting. Physical Exam Constitutional: WD/WN, vitals as above + acute distress Eyes: EOM intact bilaterally; no conjunctival abnormality ENMT: external ear and nose normal, oropharynx normal Neck: trachea midline, no thyromegaly normal visual inspection Respiratory: normal respiratory effort, lungs clear to auscultation no respiratory distress Cardiovascular: RRR, no murmur, no edema Gastrointestinal (Abdomen): Inspection/Auscultation: abdomen normal to inspection; abdomen not distended Musculoskeletal: no cyanosis or clubbing, extremities motor strength 5/5 Skin: no rashes, warm and dry Neurologic: moves all extremities and awake Psychiatric: Orientation: alert, oriented to person and cooperative Results & Data Results & Data ([facility]) Vital Signs (Past 12 Hours) Vital Signs Temp Pulse Pulse Resp BP BP Pulse Ox 12/19/19 11:31 54 L 20 96 12/19/19 10:00 37.2 C 65 18 90 12/19/19 09:00 37.2 C 61 15 93 12/19/19 08:18 37.1 C 71 20 177/70 H 90 12/19/19 08:00 37.1 C 59 L 14 96 12/19/19 07:29 57 L 18 93 12/19/19 07:00 37.1 C 55 L 15 93 12/19/19 06:37 37.0 C 58 L 19 188/59 H 93 12/19/19 06:00 37.0 C 54 L 15 90 12/19/19 05:36 37.0 C 53 L 15 150/65 H 96 12/19/19 05:00 36.9 C 55 L 19 95 12/19/19 04:36 36.9 C 54 L 13 168/68 H 91 12/19/19 04:00 36.9 C 54 L 15 95 12/19/19 03:36 36.9 C 55 L 12 162/69 H 96 12/19/19 03:15 36.5 C 55 L 19 167/71 H 96 PG Care Time/CCT Total # of Minutes Spent Total Time Spent with Patient: Total time spent is greater than 50% in coordination of care (as documented) at patient's floor/unit and/or counseling patient: Coding Level of Care Code 52534 Subseq Hosp Care Lvl 3 Diagnoses Pneumonia due to 2019 novel coronavirus U07.1; J12.89 Acute hypoxemic respiratory failure J96.01 Severe sepsis A41.9; R65.20 Coronary artery disease I25.10 Diabetes E11.9 E. coli UTI N39.0; B96.20 History of CVA (cerebrovascular accident) Z86.73 Acute tubular necrosis N17.0 Hyponatremia E87.1 Essential (primary) hypertension I10 DVT prophylaxis Z29.9
[2019-12-19] MEDS: LORazepam 1 MG TAB PO PRN (15:31)
[2019-12-20] MEDS ORDERED: METOPROLOL TARTRATE 1 MG/ML VIAL IV STA (02:59)
[2019-12-20] MEDS ORDERED: hydrALAZINE HCL 20 MG/ML VIAL IV ONE (03:00)
[2019-12-20 06:32] LABS: Hematocrit (blood only) 33.9 % (37-47); Hemoglobin 11.8 g/dL (12.0-16.0); Mean Corpuscular Hemoglobin 28.9 pg (25-34); Mean Corpuscular Hgb Conc 34.8 g/dL (32-36); Mean Corpuscular Volume 83.1 fL (80-100); Mean Platelet Volume 9.8 fL (7.4-10.4); Nucleated RBC # (auto) 0.03 K/uL (0-0); Nucleated RBC % (auto) 0.3 %; Platelet Count 289 K/uL (130-400); RDW Coefficient of Variation 13.4 % (11.5-14.5); RDW Standard Deviation 40.6 fL (36.4-46.3); Red Blood Count 4.08 M/uL (4.2-5.4); White Blood Count 10.29 K/uL (4.8-10.8)
[2019-12-20 06:58] LABS: BUN Creatinine Ratio 37.1 (10-20); Calcium 9.1 mg/dl (8.5-10.1); Creatinine Clr Calc Pharmacy 49.9 ml/min; Est GFR (African American) 72.4; Est GFR (Non-African American) 62.5; Magnesium 2.1 mg/dl (1.8-2.4); Phosphorus 3.4 mg/dl (2.5-4.9); Potassium 4.1 mmol/L (3.5-5.1)
[2019-12-20] MEDS: IPRATROPIUM BROMIDE HFA INHALER INH SCH ×3 (07:37→15:31)
[2019-12-20] MEDS: ALBUTEROL HFA 8 GM INHALER INH SCH ×3 (07:37→15:31)
[2019-12-20] MEDS ORDERED: NSS FLUSH DAYS IV SCH (08:30)
[2019-12-20] MEDS ORDERED: REMDESIVIR 100 MG IV SCH (08:30)
[2019-12-20] MEDS: DEXAMETHASONE SOD PHOSPHATE 6 MG in SYRINGE 0 ML IV SCH (08:45)
[2019-12-20] MEDS: INSULIN GLARGINE SOLOSTAR 100 UNITS/ML 3 ML PEN SC SCH ×2 (08:46→20:37)
[2019-12-20] MEDS: guaiFENesin 600 MG TABCR PO SCH ×2 (08:47→20:24)
[2019-12-20] MEDS: CLOPIDOGREL BISULFATE 75 MG TAB PO SCH (08:47)
[2019-12-20] MEDS: FAMOTIDINE 20 MG TAB PO SCH ×2 (08:47→20:24)
[2019-12-20] MEDS: METOPROLOL TARTRATE 50 MG TAB PO SCH ×2 (08:48→20:23)
[2019-12-20] MEDS: ASPIRIN 81 MG ECTAB PO SCH (08:48)
[2019-12-20] MEDS: ISOSORBIDE MONO EXTENDED REL 30 MG TABCR PO SCH (08:49)
[2019-12-20] MEDS: ENOXAPARIN INJ 40 MG/0.4 ML SYR SQ SCH ×2 (08:49→20:22)
[2019-12-20] MEDS: INSULIN ASPART 100 UNITS/ML 3 ML PEN SC SCH ×4 (08:49→20:39)
[2019-12-20] MEDS: ADVANCED PROBIOTIC 1250 MG CAPSULE PO SCH (08:50)
[2019-12-20 10:07] LABS: Creatinine Urine Random 83.3 mg/dl
--- NOTE | 2019-12-20 14:34 | Pharmacy Report ---
Pharmacy Glycemic Short Note 2 - Date of Service December 20, 2019 - Glycemic Short BSG Results (Last 24 hours): 12/19/19 12/19/19 12/20/19 17:10 20:05 05:54 Glucose 101 H POC Glucose 253 H 249 H 12/20/19 12/20/19 07:38 11:12 Glucose POC Glucose 89 129 H OUTPATIENT ANTIDIABETIC REGIMEN: * Metformin 500mg BID? (from external med history) * A1C: 8.4% 12/15/19 ASSESSMENT: 12/19 * Patient received total of 85 units of insulin yesterday, of which 45 were basal insulin * Fasting BSG trending down 101 mg/dL - will get lower dose on basal scale * BSGs tend to rise at dinner/HS - plan to tighten CR. Hesitant to change CF as BSGs tend to drop overnight 12/18 * Patient received total of 68 units of insulin yesterday, of which 45 were basal insulin * Fasting BSG slight improvement from day prior at 140 mg/dL - continue with basal scale * BSGs increasing throughout the day - tighten CR this AM / continues on dex 6 iv daily PLAN FOR INPATIENT GLYCEMIC CONTROL: * Hold outpatient oral diabetes medications (metformin) * Basal insulin * 15-25 units BID based upon BSG value / see emar for more details * Bolus insulin -tighten * NovoLog per scale ACHS * 110-140 / CF 15 and CR of 4 PLAN FOR DISCHARGE: * TBD
--- NOTE | 2019-12-20 14:44 | Hospitalist Progress Note ---
Date of Service December 20, 2019 Assessment & Plan (1) Pneumonia due to 2019 novel coronavirus: Slowly improving. Admitted to [facility] in [place] on 12/11/2019. Acute hypoxic respiratory failure / respiratory status worsened while there, and she was intubated on 12/14/19 prior to Tx to [facility] ICU. - S/p extubation on 12/16/19. * S/p convalescent plasma 12/15/19. * Finished 5 days of remdesivir on 12/20/2019. * Finished 7 days of aztreonam for UTI and to cover for bacterial pneumonia/superinfection. She is at least day #8 of IV Decadron between [facility] and [facility]. Plan 10-day course. - Finish dexamethasone on 12/22/2019. - Cont bronchodilators and Mucinex. (2) Acute hypoxemic respiratory failure: 2nd to COVID-19 pneumonia. S/p intubation on 12/13. S/p extubation on 12/15. Remains on NC O2 but weaning day-to-day. - Cont pulmonary toilet. (3) Severe sepsis: 2nd to COVID-19 pneumonia and E.coli UTI. Urine culture from [facility] was obtained - e.coli resistant to amp, amp/sulbactam, cipro, levo, and tmp/sulfa. Blood cultures from [facility] negative. - Cont supportive care for COVID-19. - Finished aztreonam for e.coli UTI. Aztreonam also will cover for any bacterial pneumonia although sputum cx thus far negative. - Sepsis resolved. (4) Hyponatremia: Was 120 at admission; now 131. TSH was 0.83 on 12/16. - Na drifted back down to 130 on 12/19. She appears euvolemic. 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 Likely due to Covid. - Fluid restriction enacted (5) Coronary artery disease: History of coronary artery disease with stenting. - Cont ASA/Plavix. - Continue metoprolol tartrate PO 50mg BID & Imdur 30mg daily. (6) Essential (primary) hypertension: BP is 175/70 today. - Continue metoprolol & Imdur - Ideally should be on NIESHA or ARB due to DM history. Will add if needed. (7) Diabetes: A1c was 8.4% this admission. Was on insulin drip; now off. - SC basal-bolus regimen in place. - Appreciate pharmacy glycemic consult and assistance. - Should improve off steroids soon. (8) E. coli UTI: See above. - Finished aztreonam. (9) History of CVA (cerebrovascular accident): Stroke left her with very mild right-sided weakness. - Cont ASA/Plavix for secondary prevention. - PT/OT for possible placement. (10) Acute tubular necrosis: 2nd to sepsis/COVID-19. Improved/resolved. Peak 1.5; now 0.9. (11) DVT prophylaxis: Lovenox SC 40mg BID Doreen (daughter) - [phone] Admission and Anticipated Discharge Date Admission Date: December 14, 2019 Subjective Reports she is doing "poorly" today, though unable to pinpoint exactly what is the cause. Reports no fevers/chills, chest pain, shortness of breath, abdominal pain, nausea, or vomiting. Physical Exam Constitutional: WD/WN, vitals as above + acute distress Eyes: EOM intact bilaterally; no conjunctival abnormality ENMT: external ear and nose normal, oropharynx normal Neck: trachea midline, no thyromegaly normal visual inspection Respiratory: normal respiratory effort, lungs clear to auscultation no respiratory distress Cardiovascular: RRR, no murmur, no edema Gastrointestinal (Abdomen): Inspection/Auscultation: abdomen normal to inspection; abdomen not distended Musculoskeletal: no cyanosis or clubbing, extremities motor strength 5/5 Skin: no rashes, warm and dry Neurologic: moves all extremities and awake Psychiatric: Orientation: alert, oriented to person and cooperative Results & Data Results & Data ([facility]) Vital Signs (Past 12 Hours) Vital Signs Temp Pulse Pulse Resp BP BP Pulse Ox 12/20/19 11:15 36.6 C 62 19 168/74 H 94 12/20/19 11:09 62 18 92 12/20/19 07:41 36.7 C 68 16 171/65 H 97 12/20/19 07:38 63 18 98 12/20/19 07:29 59 L 12/20/19 04:27 182/84 H 12/20/19 02:45 36.7 C 61 19 203/80 H 221/78 H 98 PG Care Time/CCT Total # of Minutes Spent Total Time Spent with Patient: Total time spent is greater than 50% in coordination of care (as documented) at patient's floor/unit and/or counseling patient: Coding Level of Care Code 24748 Subseq Hosp Care Lvl 3 Diagnoses Pneumonia due to 2019 novel coronavirus U07.1; J12.89 Acute hypoxemic respiratory failure J96.01 Severe sepsis A41.9; R65.20 Hyponatremia E87.1 Coronary artery disease I25.10 Essential (primary) hypertension I10 Diabetes E11.9 E. coli UTI N39.0; B96.20 History of CVA (cerebrovascular accident) Z86.73 Acute tubular necrosis N17.0 DVT prophylaxis Z29.9
[2019-12-20] MEDS ORDERED: ALBUTEROL HFA 8 GM INHALER INH PRN (17:14)
[2019-12-20] MEDS ORDERED: IPRATROPIUM BROMIDE HFA INHALER INH PRN (17:15)
[2019-12-20] MEDS: LORazepam 1 MG TAB PO PRN (20:23)
[2019-12-21] MEDS ORDERED: INSULIN ASPART 100 UNITS/ML 3 ML PEN SC SCH ×2 (02:00→16:30)
[2019-12-21] MEDS: LORazepam 1 MG TAB PO PRN ×2 (02:27→21:55)
[2019-12-21 08:15] LABS: Hematocrit (blood only) 31.8 % (37-47); Mean Corpuscular Hemoglobin 28.7 pg (25-34); Mean Corpuscular Hgb Conc 34.6 g/dL (32-36); Mean Platelet Volume 9.9 fL (7.4-10.4); Nucleated RBC # (auto) 0.06 K/uL (0-0); Nucleated RBC % (auto) 0.4 %; Platelet Count 307 K/uL (130-400); RDW Coefficient of Variation 13.6 % (11.5-14.5); RDW Standard Deviation 40.9 fL (36.4-46.3); Red Blood Count 3.83 M/uL (4.2-5.4)
[2019-12-21] MEDS: guaiFENesin 600 MG TABCR PO SCH ×2 (09:08→21:57)
[2019-12-21] MEDS: dexAMETHasone 4 MG TAB PO SCH (09:08)
[2019-12-21] MEDS: ENOXAPARIN INJ 40 MG/0.4 ML SYR SQ SCH ×2 (09:08→21:55)
[2019-12-21] MEDS: CLOPIDOGREL BISULFATE 75 MG TAB PO SCH (09:09)
[2019-12-21] MEDS: METOPROLOL TARTRATE 50 MG TAB PO SCH ×2 (09:09→21:56)
[2019-12-21] MEDS: ISOSORBIDE MONO EXTENDED REL 30 MG TABCR PO SCH (09:10)
[2019-12-21] MEDS: ADVANCED PROBIOTIC 1250 MG CAPSULE PO SCH (09:10)
[2019-12-21] MEDS: ASPIRIN 81 MG ECTAB PO SCH (09:10)
[2019-12-21 09:27] LABS: BUN Creatinine Ratio 42.8 (10-20); Calcium 9.1 mg/dl (8.5-10.1); Creatinine Clr Calc Pharmacy 50.7 ml/min; Est GFR (African American) 73.4; Est GFR (Non-African American) 63.4; Magnesium 2.1 mg/dl (1.8-2.4); Potassium 4.1 mmol/L (3.5-5.1)
[2019-12-21] MEDS: INSULIN ASPART 100 UNITS/ML 3 ML PEN SC SCH ×4 (10:35→21:54)
[2019-12-21] MEDS: INSULIN GLARGINE SOLOSTAR 100 UNITS/ML 3 ML PEN SC SCH ×2 (10:35→21:53)
[2019-12-21] MEDS ORDERED: INSULIN GLARGINE SOLOSTAR 100 UNITS/ML 3 ML PEN SC ONE (12:30)
--- NOTE | 2019-12-21 12:58 | Hospitalist Progress Note ---
Date of Service December 21, 2019 Assessment & Plan (1) Pneumonia due to 2019 novel coronavirus: Slowly improving. Admitted to [facility] in [place] on 12/11/2019. Acute hypoxic respiratory failure / respiratory status worsened while there, and she was intubated on 12/14/19 prior to Tx to [facility] ICU. - S/p extubation on 12/16/19. * S/p convalescent plasma 12/15/19. * Finished 5 days of remdesivir on 12/20/2019. * Finished 7 days of aztreonam on 12/19 for UTI and to cover for bacterial pneumonia/superinfection. She is at least day #9 of IV Decadron between [facility] and [facility]. Plan 10-day course. - Finish dexamethasone on 12/22/2019. - Cont bronchodilators and Mucinex. - Slight leukocytosis on 12/20, though still on steroids. No focal sign of infection. Will monitor. (2) Acute hypoxemic respiratory failure: 2nd to COVID-19 pneumonia. S/p intubation on 12/13. S/p extubation on 12/15. Weaned off O2 by 12/20. - Cont pulmonary toilet. (3) Severe sepsis: 2nd to COVID-19 pneumonia and E.coli UTI. Urine culture from [facility] was obtained - e.coli resistant to amp, amp/sulbactam, cipro, levo, and tmp/sulfa. Blood cultures from [facility] negative. - Cont supportive care for COVID-19. - Finished aztreonam for e.coli UTI on 12/19. - Sepsis resolved. (4) Hyponatremia: Was 120 at admission. TSH was 0.83 on 12/16. - Na drifted back down to 130 on 12/19. She appears euvolemic. 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 Likely due to Covid. - Fluid restriction enacted - Stable today. (5) Coronary artery disease: History of coronary artery disease with stenting. - Cont ASA/Plavix. - Continue metoprolol tartrate PO 50mg BID & Imdur 30mg daily. (6) Essential (primary) hypertension: BP is 175/70 today. - Continue metoprolol & Imdur - Will start losartan tonight as her BP remains elevated. (7) Diabetes: A1c was 8.4% this admission. Was on insulin drip; now off. - SC basal-bolus regimen in place. - Appreciate pharmacy glycemic consult and assistance. - Should improve off steroids soon. (8) E. coli UTI: See above. - Finished aztreonam on 12/19 (9) History of CVA (cerebrovascular accident): Stroke left her with very mild right-sided weakness. - Cont ASA/Plavix for secondary prevention. - PT/OT for possible placement. (10) Acute tubular necrosis: 2nd to sepsis/COVID-19. Improved/resolved. Peak 1.5; now 0.9. (11) DVT prophylaxis: Lovenox SC 40mg BID Doreen (daughter) - [phone] Admission and Anticipated Discharge Date Admission Date: December 14, 2019 Subjective No change today. Still with some mild shortness of breath, but breathing well on room air. Reports no fevers/chills, chest pain, shortness of breath, abdominal pain, nausea, or vomiting. Physical Exam Constitutional: WD/WN, vitals as above + acute distress Eyes: EOM intact bilaterally; no conjunctival abnormality ENMT: external ear and nose normal, oropharynx normal Neck: trachea midline, no thyromegaly normal visual inspection Respiratory: normal respiratory effort, lungs clear to auscultation no respiratory distress Cardiovascular: RRR, no murmur, no edema Gastrointestinal (Abdomen): Inspection/Auscultation: abdomen normal to inspection; abdomen not distended Musculoskeletal: no cyanosis or clubbing, extremities motor strength 5/5 Skin: no rashes, warm and dry Neurologic: moves all extremities and awake Psychiatric: Orientation: alert, oriented to person and cooperative Results & Data Results & Data ([facility]) Vital Signs (Past 12 Hours) Vital Signs Temp Pulse Pulse Resp BP BP Pulse Ox 12/21/19 11:23 36.6 C 75 19 178/73 H 92 12/21/19 08:00 36.8 C 74 20 144/97 H 92 12/21/19 04:17 36.9 C 78 21 212/88 H 96 12/21/19 01:30 80 PG Care Time/CCT Total # of Minutes Spent Total Time Spent with Patient: Total time spent is greater than 50% in coordination of care (as documented) at patient's floor/unit and/or counseling patient: Coding Level of Care Code 67567 Subseq Hosp Care Lvl 3 Diagnoses Pneumonia due to 2019 novel coronavirus U07.1; J12.89 Acute hypoxemic respiratory failure J96.01 Severe sepsis A41.9; R65.20 Hyponatremia E87.1 Coronary artery disease I25.10 Essential (primary) hypertension I10 Diabetes E11.9 E. coli UTI N39.0; B96.20 History of CVA (cerebrovascular accident) Z86.73 Acute tubular necrosis N17.0 DVT prophylaxis Z29.9
[2019-12-21] MEDS: FAMOTIDINE 20 MG TAB PO SCH ×2 (13:36→21:57)
--- NOTE | 2019-12-21 15:40 | Pharmacy Report ---
Pharmacy Glycemic Short Note 2 - Date of Service December 21, 2019 - Glycemic Short BSG Results (Last 24 hours): 12/20/19 12/20/19 12/20/19 16:36 20:10 20:14 Glucose POC Glucose 257 H 346 H* 379 H* 12/21/19 12/21/19 12/21/19 01:59 02:01 02:12 Glucose POC Glucose 68 L* 69 L* 76 12/21/19 12/21/19 12/21/19 02:42 07:34 07:35 Glucose POC Glucose 87 64 L* 61 L* 12/21/19 12/21/19 12/21/19 07:45 08:04 11:20 Glucose 50 L* POC Glucose 156 H 276 H OUTPATIENT ANTIDIABETIC REGIMEN: * Metformin 500mg BID? (from external med history) * A1C: 8.4% 12/15/19 ASSESSMENT: 12/20: * Patient received 77 units of insulin yesterday (40 of which was basal) * Patient was hypoglycemic this morning. I do favor this as a result of overcorrection from HS BSG. AM Lantus was slightly reduced, with an additional 5 units given at lunchtime once BSG rebounded. * It appears tighter CF/CR is needed for lunch and dinner and loosened for HS. 12/19 * Patient received total of 85 units of insulin yesterday, of which 45 were basal insulin * Fasting BSG trending down 101 mg/dL - will get lower dose on basal scale * BSGs tend to rise at dinner/HS - plan to tighten CR. Hesitant to change CF as BSGs tend to drop overnight 12/18 * Patient received total of 68 units of insulin yesterday, of which 45 were basal insulin * Fasting BSG slight improvement from day prior at 140 mg/dL - continue with basal scale * BSGs increasing throughout the day - tighten CR this AM / continues on dex 6 iv daily PLAN FOR INPATIENT GLYCEMIC CONTROL: * Hold outpatient oral diabetes medications (metformin) * Basal insulin * 10-20 units BID based upon BSG value / see emar for more details * Bolus insulin -tighten * NovoLog per scale ACHS * 110-140 / CF 15 and CR of 4 @0730 * 110-140 / CF 12 and CR 3 @ 1130, 1600 * 110-140 / CF 20 and CR 6 @ HS PLAN FOR DISCHARGE: * TBD
[2019-12-21] MEDS ORDERED: LOSARTAN POTASSIUM 25 MG TAB PO SCH (21:00)
[2019-12-22 07:07] LABS: Hemoglobin 10.3 g/dL (12.0-16.0); Mean Corpuscular Hemoglobin 28.9 pg (25-34); Mean Corpuscular Hgb Conc 34.3 g/dL (32-36); Mean Corpuscular Volume 84.3 fL (80-100); Nucleated RBC # (auto) 0.04 K/uL (0-0); Nucleated RBC % (auto) 0.5 %; Platelet Count 253 K/uL (130-400); RDW Coefficient of Variation 13.8 % (11.5-14.5); RDW Standard Deviation 41.2 fL (36.4-46.3); Red Blood Count 3.56 M/uL (4.2-5.4); White Blood Count 9.04 K/uL (4.8-10.8)
[2019-12-22 07:38] LABS: Est GFR (African American) 68.6; Potassium 4.4 mmol/L (3.5-5.1)
[2019-12-22 07:39] LABS: BUN Creatinine Ratio 43.2 (10-20); Calcium 8.6 mg/dl (8.5-10.1); Creatinine Clr Calc Pharmacy 47.9 ml/min; Est GFR (Non-African American) 59.2; Magnesium 2.1 mg/dl (1.8-2.4)
[2019-12-22] MEDS: guaiFENesin 600 MG TABCR PO SCH ×2 (08:53→21:06)
[2019-12-22] MEDS: FAMOTIDINE 20 MG TAB PO SCH ×2 (08:53→21:07)
[2019-12-22] MEDS: METOPROLOL TARTRATE 50 MG TAB PO SCH ×2 (08:53→21:02)
[2019-12-22] MEDS: ISOSORBIDE MONO EXTENDED REL 30 MG TABCR PO SCH (08:54)
[2019-12-22] MEDS: dexAMETHasone 4 MG TAB PO SCH (08:54)
[2019-12-22] MEDS: ADVANCED PROBIOTIC 1250 MG CAPSULE PO SCH (08:54)
[2019-12-22] MEDS: ASPIRIN 81 MG ECTAB PO SCH (08:54)
[2019-12-22] MEDS: CLOPIDOGREL BISULFATE 75 MG TAB PO SCH (08:55)
[2019-12-22] MEDS: ENOXAPARIN INJ 40 MG/0.4 ML SYR SQ SCH ×2 (08:55→20:59)
[2019-12-22] MEDS: INSULIN ASPART 100 UNITS/ML 3 ML PEN SC SCH ×4 (09:16→20:55)
[2019-12-22] MEDS: INSULIN GLARGINE SOLOSTAR 100 UNITS/ML 3 ML PEN SC SCH ×2 (09:16→20:58)
--- NOTE | 2019-12-22 13:42 | Hospitalist Progress Note ---
Date of Service December 22, 2019 Assessment & Plan (1) Pneumonia due to 2019 novel coronavirus: Admitted to [facility] in [place] on 12/11/2019. Acute hypoxic respiratory failure / respiratory status worsened while there, and she was intubated on 12/14/19 prior to Tx to [facility] ICU. - S/p extubation on 12/16/19. * S/p convalescent plasma 12/15/19. * Finished 5 days of remdesivir on 12/20/2019. * Finished 7 days of aztreonam on 12/19 for UTI and to cover for bacterial pneumonia/superinfection. * Finished dexamethasone on 12/22/2019. - Cont bronchodilators and Mucinex. - Slight leukocytosis on 12/20, though still on steroids. No focal sign of infection. Down to normal on 12/21. Now on room air. (2) Acute hypoxemic respiratory failure: 2nd to COVID-19 pneumonia. S/p intubation on 12/13. S/p extubation on 12/15. Weaned off O2 by 12/20. - Cont pulmonary toilet. (3) Severe sepsis: 2nd to COVID-19 pneumonia and E.coli UTI. Urine culture from [facility] was obtained - e.coli resistant to amp, amp/sulbactam, cipro, levo, and tmp/sulfa. Blood cultures from [facility] negative. - Cont supportive care for COVID-19. - Finished aztreonam for E. coli UTI on 12/19. - Sepsis resolved. (4) Hyponatremia: Was 120 at admission. TSH was 0.83 on 12/16. - Na drifted back down to 130 on 12/19. She appears euvolemic. 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 Likely due to Covid. - Fluid restriction of 1500 mL started on 12/19. - Mostly stable today, though a bit lower at 129. (5) Coronary artery disease: History of coronary artery disease with stenting. - Cont ASA/Plavix. - Continue metoprolol tartrate PO 50mg BID & Imdur 30mg daily. (6) Essential (primary) hypertension: BP is 195/90 today. - Continue metoprolol & Imdur - Started losartan on12/20; will increase today. (7) Diabetes: A1c was 8.4% this admission. Was on insulin drip; now off. - SC basal-bolus regimen in place. - Appreciate pharmacy glycemic consult and assistance. - Sugars still up to 280 today. (8) E. coli UTI: See above. - Finished aztreonam on 12/19 (9) History of CVA (cerebrovascular accident): Stroke left her with very mild right-sided weakness. - Cont ASA/Plavix for secondary prevention. - PT/OT for possible placement. (10) Acute tubular necrosis: 2nd to sepsis/COVID-19. Improved/resolved. Peak 1.5; now 0.9. (11) DVT prophylaxis: Lovenox SC 40mg BID Doreen (daughter) - [phone] Admission and Anticipated Discharge Date Admission Date: December 14, 2019 Subjective More withdrawn today. She reports her back hurts, but then also sometimes will not answer questions and just stare into space. Review of Systems Review of Systems: Unobtainable due to cognitive status Physical Exam Constitutional: WD/WN, vitals as above no acute distress Eyes: EOM intact bilaterally; no conjunctival abnormality ENMT: external ear and nose normal, oropharynx normal Neck: trachea midline, no thyromegaly normal visual inspection Respiratory: normal respiratory effort, lungs clear to auscultation no res piratory distress Cardiovascular: RRR, no murmur, no edema Gastrointestinal (Abdomen): Inspection/Auscultation: abdomen normal to inspection; abdomen not distended Musculoskeletal: no cyanosis or clubbing, extremities motor strength 5/5 Skin: no rashes, warm and dry Neurologic: moves all extremities and awake Psychiatric: Orientation: alert, oriented to person and cooperative Affect: + blunted affect Results & Data Results & Data ([facility]) Vital Signs (Past 12 Hours) Vital Signs Temp Pulse Resp BP BP Pulse Ox 12/22/19 11:35 194/90 H 12/22/19 11:25 36.5 C 63 18 191/69 H 96 12/22/19 10:40 62 18 148/62 H 98 12/22/19 10:25 62 18 164/72 H 98 12/22/19 10:20 61 18 168/69 H 96 12/22/19 10:00 62 16 170/68 H 96 12/22/19 08:50 188/78 H 12/22/19 08:48 36.6 C 64 18 204/76 H 93 PG Care Time/CCT Total # of Minutes Spent Total Time Spent with Patient: Total time spent is greater than 50% in coordination of care (as documented) at patient's floor/unit and/or counseling patient: Coding Level of Care Code 81414 Subseq Hosp Care Lvl 3 Diagnoses Pneumonia due to 2019 novel coronavirus U07.1; J12.89 Acute hypoxemic respiratory failure J96.01 Severe sepsis A41.9; R65.20 Hyponatremia E87.1 Coronary artery disease I25.10 Essential (primary) hypertension I10 Diabetes E11.9 E. coli UTI N39.0; B96.20 History of CVA (cerebrovascular accident) Z86.73 Acute tubular necrosis N17.0 DVT prophylaxis Z29.9
[2019-12-22] MEDS: ACETAMINOPHEN 325 MG TAB PO PRN (17:35)
[2019-12-22] MEDS: LOSARTAN POTASSIUM 50 MG TAB PO SCH (21:02)
[2019-12-23] MEDS ORDERED: hydrALAZINE HCL 20 MG/ML VIAL IV ONE (00:25)
--- NOTE | 2019-12-23 00:36 | Communication Note ---
Date of Service: December 23, 2019 Notified that pt's repeat COVID test was positive. 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
[2019-12-23] MEDS: ACETAMINOPHEN 325 MG TAB PO PRN ×3 (02:15→21:19)
[2019-12-23] MEDS ORDERED: METOPROLOL TARTRATE 1 MG/ML VIAL IV STA (04:36)
--- NOTE | 2019-12-23 04:39 | Communication Note ---
Date of Service: December 23, 2019 Notified that pt had a systolic BP >200 with HR of 65. Given Hydralazine 5mg. Notified once more about 6 hours later that systolic was still in the 190s with HR of 70. Lopressor 5mg was ordered. Consider optimizing PO BP meds for adequate BP control. 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
[2019-12-23 07:57] LABS: Hematocrit (blood only) 32.4 % (37-47); Hemoglobin 11.1 g/dL (12.0-16.0); Mean Corpuscular Hemoglobin 28.8 pg (25-34); Mean Corpuscular Hgb Conc 34.3 g/dL (32-36); Mean Corpuscular Volume 83.9 fL (80-100); Mean Platelet Volume 10.1 fL (7.4-10.4); Platelet Count 261 K/uL (130-400); RDW Coefficient of Variation 14.3 % (11.5-14.5); RDW Standard Deviation 42.3 fL (36.4-46.3); Red Blood Count 3.86 M/uL (4.2-5.4); White Blood Count 11.28 K/uL (4.8-10.8)
[2019-12-23 08:27] LABS: Potassium 4.3 mmol/L (3.5-5.1)
[2019-12-23] MEDS: CLOPIDOGREL BISULFATE 75 MG TAB PO SCH (08:27)
[2019-12-23] MEDS: ADVANCED PROBIOTIC 1250 MG CAPSULE PO SCH (08:27)
[2019-12-23] MEDS: guaiFENesin 600 MG TABCR PO SCH ×2 (08:27→20:46)
[2019-12-23] MEDS: FAMOTIDINE 20 MG TAB PO SCH ×2 (08:27→20:46)
[2019-12-23] MEDS: ASPIRIN 81 MG ECTAB PO SCH (08:27)
[2019-12-23] MEDS: METOPROLOL TARTRATE 50 MG TAB PO SCH ×2 (08:27→20:46)
[2019-12-23 08:28] LABS: BUN Creatinine Ratio 38.9 (10-20); Calcium 8.9 mg/dl (8.5-10.1); Creatinine Clr Calc Pharmacy 46.9 ml/min; Est GFR (African American) 66.8; Est GFR (Non-African American) 57.6; Magnesium 2.2 mg/dl (1.8-2.4); Phosphorus 3.6 mg/dl (2.5-4.9)
[2019-12-23] MEDS: ENOXAPARIN INJ 40 MG/0.4 ML SYR SQ SCH ×2 (08:28→20:48)
[2019-12-23] MEDS: ISOSORBIDE MONO EXTENDED REL 30 MG TABCR PO SCH (08:28)
[2019-12-23] MEDS: INSULIN ASPART 100 UNITS/ML 3 ML PEN SC SCH ×4 (08:54→21:10)
[2019-12-23] MEDS: INSULIN GLARGINE SOLOSTAR 100 UNITS/ML 3 ML PEN SC SCH ×2 (08:54→21:10)
--- NOTE | 2019-12-23 14:41 | Pharmacy Report ---
Pharmacy Glycemic Short Note 2 - Date of Service December 23, 2019 - Glycemic Short BSG Results (Last 24 hours): 12/22/19 12/22/19 12/23/19 16:59 20:45 07:25 Glucose 126 H POC Glucose 275 H 299 H 12/23/19 12/23/19 07:48 11:59 Glucose POC Glucose 127 H 168 H OUTPATIENT ANTIDIABETIC REGIMEN: * Metformin 500mg BID? (from external med history) * Tresiba 45 units SQ daily * A1C: 8.4% 12/15/19 ASSESSMENT: 12/22: * Patient received total of 132 units of insulin yesterday: 45 units of basal + 87 units bolus. * Patient had been getting Dexamethasone 6 mg PO daily until yesterday morning. This has been discontinued which means patient would not have the steroid induced hyperglycemia for which she needed higher doses of Novolog till yesterday. * Novolog parameters were loosened with lunch today. * Fasting BSG was at goal 127 mg/dl. Pre-lunch BSG was only slightly elevated at 168 mg/dl. However, patient refused the lunch insulin dose. * Will continue with the Lantus BID dosing based on BSG scale currently ordered. PLAN FOR INPATIENT GLYCEMIC CONTROL: * Hold outpatient oral diabetes medications (metformin) * Basal insulin: continued * 15-25 units BID based upon BSG value / see emar for more details * Bolus insulin -loosened * NovoLog per scale ACHS * Goal 110-140 mg/dl * Correction factor: 20 units * Carb ratio: 1:6 PLAN FOR DISCHARGE: * HbA1c = 8.4% * Current A1c is acceptable for this patient given her age and co-morbidities. * Per external med history, patient is on both Metformin 500 mg BID and Tresiba insulin 45 units SQ daily. * Recommend continue current home meds as long as patient is not reporting episodes of hypoglycemia.
[2019-12-23] MEDS: LOSARTAN POTASSIUM 50 MG TAB PO SCH (20:46)
--- NOTE | 2019-12-23 21:43 | Hospitalist Progress Note ---
Date of Service December 23, 2019 Assessment & Plan (1) Pneumonia due to 2019 novel coronavirus: Admitted to [facility] in [place] on 12/11/2019. Acute hypoxic respiratory failure / respiratory status worsened while there, and she was intubated on 12/14/19 prior to Tx to [facility] ICU. - S/p extubation on 12/16/19. * S/p convalescent plasma 12/15/19. * Finished 5 days of remdesivir on 12/20/2019. * Finished 7 days of aztreonam on 12/19 for UTI and to cover for bacterial pneumonia/superinfection. * Finished dexamethasone on 12/22/2019. - Cont bronchodilators and Mucinex. - Slight leukocytosis on 12/20. No focal sign of infection. Down to normal on 12/21 & up a bit on 12/22. Now on room air. (2) Acute hypoxemic respiratory failure: 2nd to COVID-19 pneumonia. S/p intubation on 12/13. S/p extubation on 12/15. Weaned off O2 by 12/20. - Cont pulmonary toilet. (3) Severe sepsis: 2nd to COVID-19 pneumonia and E.coli UTI. Urine culture from [facility] was obtained - e.coli resistant to amp, amp/sulbactam, cipro, levo, and tmp/sulfa. Blood cultures from [facility] negative. - Cont supportive care for COVID-19. - Finished aztreonam for E. coli UTI on 12/19. - Sepsis resolved. (4) Hyponatremia: Was 120 at admission. TSH was 0.83 on 12/16. - Na drifted back down to 130 on 12/19. She appears euvolemic. 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 Likely due to Covid. - Fluid restriction of 1500 mL started on 12/19. - Mostly stable today at 130. (5) Coronary artery disease: History of coronary artery disease with stenting. - Cont ASA/Plavix. - Continue metoprolol tartrate PO 50mg BID & Imdur 30mg daily. (6) Essential (primary) hypertension: BP is 130/66 today. - Continue metoprolol & Imdur - Started losartan on 12/20; increased to 50 mg HS on 12/21 and BP much better. (7) Diabetes: A1c was 8.4% this admission. Was on insulin drip; now off. - SC basal-bolus regimen in place. - Appreciate pharmacy glycemic consult and assistance. - Sugars still up to 400 today. Parameters were loosened when her steroids finished. They will need to re-tighten them. (8) E. coli UTI: See above. - Finished aztreonam on 12/19 (9) History of CVA (cerebrovascular accident): Stroke left her with very mild right-sided weakness. - Cont ASA/Plavix for secondary prevention. - PT/OT for placement. Covid test on 12/21 was still positive. (10) Acute tubular necrosis: 2nd to sepsis/COVID-19. Improved/resolved. Peak 1.5; now 0.9. (11) DVT prophylaxis: Lovenox SC 40mg BID Doreen (daughter) - [phone] Admission and Anticipated Discharge Date Admission Date: December 14, 2019 Subjective Reports abdominal pain. Reports no fevers/chills, chest pain, shortness of breath, nausea, or vomiting. Physical Exam Constitutional: WD/WN, vitals as above no acute distress Eyes: EOM intact bilaterally; no conjunctival abnormality ENMT: external ear and nose normal, oropharynx normal Neck: trachea midline, no thyromegaly normal visual inspection Respiratory: normal respiratory effort, lungs clear to auscultation no respiratory distress Cardiovascular: RRR, no murmur, no edema Gastrointestinal (Abdomen): Inspection/Auscultation: abdomen normal to inspection; abdomen not distended Musculoskeletal: no cyanosis or clubbing, extremities motor strength 5/5 Skin: no rashes, warm and dry Neurologic: moves all extremities and awake Psychiatric: Orientation: alert, oriented to person and cooperative Affect: + blunted affect Results & Data Results & Data ([facility]) Vital Signs (Past 12 Hours) Vital Signs Temp Pulse Resp BP Pulse Ox 12/23/19 15:08 36.3 C L 58 L 18 128/66 98 PG Care Time/CCT Total # of Minutes Spent Total Time Spent with Patient: Total time spent is greater than 50% in coordination of care (as documented) at patient's floor/unit and/or counseling patient: Coding Level of Care Code 77399 Subseq Hosp Care Lvl 3 Diagnoses Pneumonia due to 2019 novel coronavirus U07.1; J12.89 Acute hypoxemic respiratory failure J96.01 Severe sepsis A41.9; R65.20 Hyponatremia E87.1 Coronary artery disease I25.10 Essential (primary) hypertension I10 Diabetes E11.9 E. coli UTI N39.0; B96.20 History of CVA (cerebrovascular accident) Z86.73 Acute tubular necrosis N17.0 DVT prophylaxis Z29.9
[2019-12-24] MEDS: ADVANCED PROBIOTIC 1250 MG CAPSULE PO SCH (07:30)
[2019-12-24] MEDS: ISOSORBIDE MONO EXTENDED REL 30 MG TABCR PO SCH (07:30)
[2019-12-24] MEDS: ENOXAPARIN INJ 40 MG/0.4 ML SYR SQ SCH (07:31)
[2019-12-24] MEDS: FAMOTIDINE 20 MG TAB PO SCH (07:31)
[2019-12-24] MEDS: METOPROLOL TARTRATE 50 MG TAB PO SCH (07:31)
[2019-12-24] MEDS: guaiFENesin 600 MG TABCR PO SCH (07:31)
[2019-12-24] MEDS: CLOPIDOGREL BISULFATE 75 MG TAB PO SCH (07:31)
[2019-12-24] MEDS: ASPIRIN 81 MG ECTAB PO SCH (07:31)
[2019-12-24] MEDS: INSULIN ASPART 100 UNITS/ML 3 ML PEN SC SCH ×2 (08:18→12:09)
[2019-12-24 08:30] LABS: Hematocrit (blood only) 31.1 % (37-47); Hemoglobin 10.5 g/dL (12.0-16.0); Mean Corpuscular Hemoglobin 28.8 pg (25-34); Mean Corpuscular Hgb Conc 33.8 g/dL (32-36); Mean Corpuscular Volume 85.2 fL (80-100); Mean Platelet Volume 9.9 fL (7.4-10.4); Platelet Count 239 K/uL (130-400); RDW Coefficient of Variation 14.7 % (11.5-14.5); RDW Standard Deviation 44.2 fL (36.4-46.3); Red Blood Count 3.65 M/uL (4.2-5.4); White Blood Count 14.08 K/uL (4.8-10.8)
[2019-12-24 08:54] LABS: BUN Creatinine Ratio 39.2 (10-20); Calcium 8.4 mg/dl (8.5-10.1); Creatinine Clr Calc Pharmacy 49.6 ml/min; Est GFR (African American) 71.4; Est GFR (Non-African American) 61.6; Potassium 4.5 mmol/L (3.5-5.1)
[2019-12-24] MEDS ORDERED: INSULIN GLARGINE SOLOSTAR 100 UNITS/ML 3 ML PEN SC ONE (09:00)
[2019-12-24] MEDS: ACETAMINOPHEN 325 MG TAB PO PRN (10:16)
[2019-12-24] MEDS ORDERED: SIMETHICONE 80 MG CHEW PO PRN (12:27)
--- NOTE | 2019-12-24 15:21 | Pharmacy Report ---
Pharmacy Glycemic Short Note 2 - Date of Service December 24, 2019 - Glycemic Short BSG Results (Last 24 hours): 12/23/19 12/23/19 12/23/19 16:22 19:24 19:26 Glucose POC Glucose 173 H 379 H* 395 H* 12/23/19 12/24/19 12/24/19 20:52 08:03 08:05 Glucose 62 L POC Glucose 270 H 67 L* 12/24/19 12/24/19 08:05 11:27 Glucose POC Glucose 70 186 H OUTPATIENT ANTIDIABETIC REGIMEN: * Metformin 500mg BID? (from external med history) * Tresiba 45 units SQ daily * A1C: 8.4% 12/15/19 ASSESSMENT: 12/23: * Patient received total 74 units of insulin yesterday: 45 units of basal + 29 units bolus. * Fasting BSG was low this AM at 62. Lantus dose was therefore decreased to 10 units. Hypoglycemic episode this AM is most likely due to the basal insulin dose given last night. Therefore, this is reduced for tonight. * Post prandial BSGs yesterday were elevated. Patient refused the lunch time insulin dose. * Continued with same CF of Novolog but loosened the carb ratio slightly today. 12/22: * Patient received total of 132 units of insulin yesterday: 45 units of basal + 87 units bolus. * Patient had been getting Dexamethasone 6 mg PO daily until yesterday morning. This has been discontinued which means patient would not have the steroid induced hyperglycemia for which she needed higher doses of Novolog till yesterday. * Novolog parameters were loosened with lunch today. * Fasting BSG was at goal 127 mg/dl. Pre-lunch BSG was only slightly elevated at 168 mg/dl. However, patient refused the lunch insulin dose. * Will continue with the Lantus BID dosing based on BSG scale currently ordered. PLAN FOR INPATIENT GLYCEMIC CONTROL: * Hold outpatient oral diabetes medications (metformin) * Basal insulin: decreased * Lantus 10 units SQ this AM. * Lantus 15-20 units scale HS based upon BSG value * Bolus insulin -loosened CR * NovoLog per scale ACHS * Goal 110-140 mg/dl * Correction factor: 20 units * Carb ratio: 1:7 PLAN FOR DISCHARGE: * HbA1c = 8.4% * Current A1c is acceptable for this patient given her age and co-morbidities. * Per external med history, patient is on both Metformin 500 mg BID and Tresiba insulin 45 units SQ QAM. * Recommend continue current home meds as long as patient is not reporting episodes of hypoglycemia.
--- NOTE | 2019-12-24 23:02 | Discharge Summary ---
Date of Service December 24, 2019 Admission HPI Per Admitting Provider 79-year-old female transferred from [facility] with acute respiratory failure secondary to Covid pneumonia with intubation prior to transport Reportedly the patient was admitted to [facility] on [address] scan findings consistent with bilateral groundglass opacities right greater than left. At the time that they were suspicious that this could be a Covid infection and an testing was sent but did not return until the at which time an infectious disease consultation was undertaken and remdesivir was initiated as well as Decadron therapy. However the patient continued to have progressive respiratory requirements and call to our intensive care team was made patient was accepted in transfer however the team at [facility] felt more comfortable with the patient being intubated prior to transfer. Patient arrives intubated she is sedated with propofol will be continued on dexamethasone remdesivir will be given convalescent plasma prior. I did obtain phone consent from Doreen Cisneros her daughter. GC bladder patient also did initially received levofloxacin on presentation and then aztreonam for what was felt to be an E. coli UTI as she does have a history of penicillin allergy. Patient does arrive here with an elevated blood glucose likely from the Decadron and her history of type 2 diabetes we will attempt to use basal bolus insulin therapy at this time to avoid insulin drip to minimize nursing exposure to the patient with Covid infection. Reportedly per [facility] notes the patient did receive a dental extraction a few days prior to her initial presentation to [facility] details of this are unknown or if the dentist is aware of the patient's Covid status Principal Diagnosis Pneumonia due to COVID 19, acute hypoxic respiratory failure Discharge Exam Constitutional WD/WN, vitals as above + obese; no acute distress Neck trachea midline, no thyromegaly + thick neck Respiratory normal respiratory effort, lungs clear to auscultation Cardiovascular RRR, no murmur, no edema Gastrointestinal (Abdomen) Inspection/Auscultation: abdomen normal to inspection and normal bowel sounds Percussion/Palpation: abdomen soft and + tympanic to percussion; abdomen nontender, no guarding, abdomen not rigid and no hernia Musculoskeletal no cyanosis or clubbing, extremities motor strength 5/5 Skin no rashes, warm and dry Neurologic patellar DTR's 2+ bilat, sensation intact and PERRL, EOMI, accommodation nl, no face palsy, no dysarthria Psychiatric A+Ox3, euthymic affect Discharge Data Allergies Allergy/AdvReac Type Severity Reaction Status Date / Time azithromycin Allergy Unknown Verified 12/14/19 19:03 bethanechol Allergy Unknown Verified 12/14/19 19:03 cefadroxil Allergy Unknown Verified 12/14/19 19:03 diltiazem [From Cardizem] Allergy Unknown Verified 12/14/19 19:03 erythromycin base Allergy Unknown Verified 12/14/19 19:03 iodine Allergy Unknown Verified 12/14/19 19:03 lisinopril Allergy Unknown Verified 12/14/19 19:03 metoclopramide Allergy Unknown Verified 12/14/19 19:03 Penicillins Allergy Unknown Verified 12/14/19 19:03 phenylephrine Allergy Unknown Verified 12/14/19 19:03 prednisone Allergy Unknown Verified 12/14/19 19:03 ramipril Allergy Unknown Verified 12/14/19 19:03 Sulfa (Sulfonamide Allergy Unknown Verified 12/14/19 19:03 Antibiotics) trazodone Allergy Unknown Verified 12/14/19 19:03 Consultations 12/14/19 17:14 Consult Case Management - Discharge Planning Routine Ordered Studies 12/14/19 20:56 US point of care ultrasound Urgent Hospital Course (1) Pneumonia due to 2019 novel coronavirus: Admitted to [facility] in [place] on 12/11/2019. Acute hypoxic respiratory failure / respiratory status worsened while there, and she was intubated on 12/14/19 prior to Tx to [facility] ICU. - S/p extubation on 12/16/19. * S/p convalescent plasma 12/15/19. * Finished 5 days of remdesivir on 12/20/2019. * Finished 7 days of aztreonam on 12/19 for UTI and to cover for bacterial pneumonia/superinfection. * Finished dexamethasone on 12/22/2019. - will continue Albeterol PRN on discharge breathing comfortably on room air discharge to home (2) Acute hypoxemic respiratory failure: 2nd to COVID-19 pneumonia. S/p intubation on 12/13. S/p extubation on 12/15. Weaned off O2 by 12/20, stable for three days (3) Severe sepsis: 2nd to COVID-19 pneumonia and E.coli UTI. Urine culture from [facility] was obtained - e.coli resistant to amp, amp/sulbactam, cipro, levo, and tmp/sulfa. Blood cultures from [facility] negative. - Cont supportive care for COVID-19. - Finished aztreonam for E. coli UTI on 12/19. - Sepsis resolved. (4) Hyponatremia: Was 120 at admission. TSH was 0.83 on 12/16. - Na drifted back down to 130 on 12/19. She appears euvolemic. 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 Likely due to Covid and pulmonary inflammation - Fluid restriction of 1999 - Na is 129 on discharge, will prescribe sodium chloride 1gm daily to improve sodium intake follow up with PCP in one week for lab work (5) Coronary artery disease: History of coronary artery disease with stenting. - Cont ASA/Plavix. - Continue metoprolol tartrate PO 50mg BID & Imdur 30mg daily. (6) Essential (primary) hypertension: BP has been stable - Continue metoprolol & Imdur and Norvasc and Losartan (7) Diabetes: A1c was 8.4% this admission. Was on insulin drip; now off. - SC basal-bolus regimen in place. - discussed with daughter, she takes Metformin at home as well as insulin degludec at home, her daughter feels comfortable managing sugars at home (8) E. coli UTI: See above. - Finished aztreonam on 12/19 (9) History of CVA (cerebrovascular accident): Stroke left her with very mild right-sided weakness. - Cont ASA/Plavix for secondary prevention. - PT/OT for placement. Covid test on 12/21 was still positive. (10) Acute tubular necrosis: 2nd to sepsis/COVID-19. Improved/resolved. Peak 1.5; now 0.9. Total Time Total Time Spent Total Time Spent (In Minutes): 35 minutes Total Time Includes: Examination of the Patient, Discharge Planning and Medication Reconciliation Discharge Plan Discharge Items Patient Disposition: Home - Home Health Services Reason For Visit: COVID PNEUMONIA, HYPONATREMIA Discharge Diagnosis: COVID pneumonia hyponatremia Condition on Discharge: Good Goals: improve strength and mobility, stay well nourished and well hydrated Activity: Resume your previous activity Non-emergency contact: Primary Care Provider Call non-emergency contact if: you have any medication questions, your symptoms worsen and you have a fever Follow-up/Referrals: Sherice Linton MD [Primary Care Provider] - 12/31/19 2:50 pm (This will be a phone visit and not an office visit) Diet: Carb Consistent or DM2 Fluids: 2000ml (8 cups) Addtl Attending Provider Instructions: Medications: please resume all prior medications you were taking, no changes made to those medications if doses on this list don't match up then refer to what dose you were taking at home SODIUM CHLORIDE: 1gm daily to help maintain sodium level ALBUTEROL: use inhaler as needed for shortness of breath or wheezing COVID 19 pneumonia: completed treatment, titrated down to room air for several days UTI: completed full course of Aztreonam, no further symptoms Hyponatremia: low sodium, urine testing suggests possible SIADH, which makes you retain water and this lowers sodium treat with fluid restriction of 2 liters a day and give sodium chloride tablets 1gm daily Pending Studies at Discharge: No Stand-Alone Forms: [facility], Smoking Cessation Medications and DC Order Prescriptions: New albuterol sulfate [Ventolin HFA] 90 mcg/actuation Hfa Aerosol Inhaler 1 puff inhalation QIDR PRN (Reason: shortness of breath or wheezing) 30 Days Qty: 8.5 RF: 3 clopidogrel 75 mg Tablet 75 mg PO QAM Qty: 30 RF: 3 isosorbide mononitrate 30 mg Tablet Extended Release 24 Hr 30 mg PO QAM 30 Days Qty: 30 RF: 3 losartan 50 mg Tablet 50 mg PO HS 30 Days Qty: 30 RF: 3 metoprolol tartrate 50 mg Tablet 50 mg PO BID 30 Days Qty: 60 RF: 3 aspirin 81 mg Tablet,Delayed Release (Dr/Ec) 81 mg PO QAM 30 Days Qty: 30 RF: 3 lorazepam 1 mg Tablet 1 mg PO BID PRN (Reason: anxiety) 30 Days Qty: 60 RF: 0 sodium chloride 1 gram tablet 1,000 mg PO DAILY Qty: 30 RF: 3 gabapentin [Neurontin] 300 mg capsule 300 mg PO BID 30 Days Qty: 60 RF: 3 amlodipine [Norvasc] 10 mg tablet 10 mg PO DAILY Qty: 30 RF: 3 Tresiba FlexTouch U-100 100 unit/mL (3 mL) insulin pen 5 unit subcut DAILY Qty: 3 RF: 3 metformin 500 mg tablet 500 mg PO BID Qty: 60 RF: 3 docusate sodium [Colace] 100 mg capsule 100 mg PO BID Qty: 60 RF: 0 pantoprazole [Protonix] 40 mg tablet,delayed release (DR/EC) 40 mg PO DAILY 28 Days Qty: 28 RF: 3 Discharge Orders: Discharge Order (Routine); Ordered 12/24/19 Ordered By: Johan Pérez Admission Data Admit Date/Time: 12/14/19 17:22 Attending Provider: Johan Pérez Admit Provider: Beto Kay Primary Care Provider: Sherice Linton Other Providers: [facility],Home Healthcare Other Interventions: Discharge Summary Assessment (RN) Last Done: 12/24/19 14:23 Coding Level of Care Code D/C Day Management >30 mins Diagnoses Pneumonia due to 2019 novel coronavirus U07.1; J12.89 Acute hypoxemic respiratory failure J96.01 Severe sepsis A41.9; R65.20 Hyponatremia E87.1 Coronary artery disease I25.10 Essential (primary) hypertension I10 Diabetes E11.9 E. coli UTI N39.0; B96.20 History of CVA (cerebrovascular accident) Z86.73 Acute tubular necrosis N17.0
--- NOTE | 2020-01-06 09:29 | Coding Query ---
PRESENT ON ADMISSION QUERY To promote full compliance with coding requirements relating to pateint care, physician participation is requested in all cases of reservations sales supervisor uncertainty. Please assist us with the question(s) below: Please place an X within the parenthesis (x). The following diagnosis listed in this patient's medical record requires physician assistance to determine if they were present on admission (POA) or not. Please advise for each diagnosis whether it was present on admission, not present on admission, or if it was clinically undetermined. 1. Sepsis ( x) Present On Admission ( ) Not Present On Admission ( ) Clinically Undetermined Thank you Dana Brannon *Definition of the present on admission (POA)-Present on admission is defined as present at the time the order for inpatient admission occurs. Conditions that develop during an outpatient encounter prior to a written order for inpatient admission (including emergency department, observation, or outpatient surgery) are considered present on admission. MTDD
== END 2019-12-24 16:43 | disposition home health service (06) | DRG 871 ==
LOC: 2E 17:22 → SUATTDRO 17:22 → 2S 12-21 14:47 → 2W 12-21 18:36